=== PATIENT | female | born 1975 | race Caucasian/White ===

== ENCOUNTER 2017-09-26 11:19 | Emergency (ER) | payer MEDICAID ==
[~2017-09-26] VITALS: Ht 165.1 cm; Wt 95.3 kg
[~2017-09-26 11:19] MED LIST: ALBUTEROL2 PUFFS/17 IN; AMOXIL500 MG PO; AMOXIL875 MG PO; APAP/BUTALBITAL1 TA1 PO; BENADRYL25 M1 PO; CIPRO 500MG TA500 MG PO; CIPRODEX 0.3%-7.5 ML OT; DARVOCET-N 1001 EACH PO; FLEXERIL10 MG PO; HYDROCODONE1 TABLET PO; IBU-8800 MG PO; IBUPROFEN800 MG PO; KEFLEX 500MG.500 MG PO; LORTAB 5/500 501 TAB PO; NOMEDS; NOMEDS *; PHENERGAN 25MG.25 M1 PO; PRAVASTATIN 40M40 MG PO; PREDNISONE20 MG PO; PYRIDIUM 200MG200 MG PO; SKELAXIN800 MG PO; SULFACETAMI15 ML/BO1 OP; Tramadol HCl50 MG PO; VIBRAMYCIN 100100 MG PO; VICODIN 5/500 T1 TAB PO; VOLTAREN75 MG PO; ZANTAC 300300 MG PO
--- OUTSIDE RECORDS SUMMARY | 2017-09-26 11:24 | External Medical Summary Rpt | CCD ---
Author Author , LEONIDAS Organization LEONIDAS Address Unknown Phone [email or web address] Purpose Continuity of Care Document - 08-13-2013 through 2016 Results Labs Lab Lab Date Result Refere Interp Status Commen Order Detail nces retati t Range on Treponema pallidum IgG Ab [Presence] in Serum by Immunoassay (08-13-2013 13:15) Trepone NON-QI complet ma 013 CTIVE ed pallidu 13:15 m IgG Ab [Presen ce] in Serum by Immunoa ssay Treponema pallidum IgG Ab [Presence] in Serum by Immunoassay (08-13-2013 13:15) COLLECT JF complet OR 013 ed 13:15 ETHNICI C complet TY 013 ed 13:15 PURPOSE ROUTINE complet OF 013 ed EXAM 13:15 SPECIME BLOOD complet N 013 ed SOURCE 13:15 CHART [id number] complet NUMBER 013 ed 13:15 Trepone Pending complet ma 013 ed pallidu 13:15 m IgG Ab [Presen ce] in Serum by Immunoa ssay
--- OUTSIDE RECORDS SUMMARY | 2017-09-26 11:24 | External Medical Summary Rpt | CCD ---
Author Author , LEONIDAS Organization LEONIDAS Address Unknown Phone [email or web address] Purpose Continuity of Care Document - 08-13-2013 [...] complet N 013 ed SOURCE 13:15 CHART [id number] complet NUMBER 013 ed 13:15 Trepone Pending complet ma 013 ed pallidu 13:15 m IgG Ab [Presen ce] in Serum by Immunoa ssay
--- OUTSIDE RECORDS SUMMARY | 2017-09-26 11:24 | External Medical Summary Rpt | CCD ---
Author Author Conduent Organization Conduent Address Unknown Phone Unavailable Purpose Continuity of Care Document - through 2016
--- OUTSIDE RECORDS SUMMARY | 2017-09-26 11:24 | External Medical Summary Rpt | CCD ---
Demographics Preferred Language Bhutanese Marital Status Unknown Sikhism Affiliation Unknown Race Unknown Ethnic Group Unknown Author Author , LEONIDAS LAUREN Address Unknown Phone Immunization No patient found.
--- OUTSIDE RECORDS SUMMARY | 2017-09-26 11:24 | External Medical Summary Rpt | CCD ---
Demographics Preferred Language Hungarian Marital Status Unknown Mormonism Affiliation Unknown Race Unknown Ethnic Group Unknown Author Author , LEONIDAS LAUREN Address Unknown Phone Immunization No patient found.
--- OUTSIDE RECORDS SUMMARY | 2017-09-26 11:25 | External Medical Summary Rpt ---
Author Author LEONIDAS Johnson, LEONIDAS Production Organization LEONIDAS Production Address Unknown Phone Unavailable Results Treponema pallidum IgG Ab [Presence] in Serum by Immunoassay Observa Value Referen Units Interpr Notes Date tion ce etation Range COLLECT JF No No No No Sep 25 OR informa informa informa informa 2013 tion in tion in tion in tion in 1:15 PM source source source source data data data data ETHNICI C No No No No Sep 25 TY informa informa informa informa 2013 tion in tion in tion in tion in 1:15 PM source source source source data data data data PURPOSE ROUTINE No No No No Sep 25 OF informa informa informa informa 2013 EXAM tion in tion in tion in tion in 1:15 PM source source source source data data data data SPECIME BLOOD No No No No Sep 25 N informa informa informa informa 2013 SOURCE tion in tion in tion in tion in 1:15 PM source source source source data data data data CHART [id number] No No No No Sep 25 NUMBER informa informa informa informa 2013 tion in tion in tion in tion in 1:15 PM source source source source data data data data Trepone NON-QI No No No METHOD Sep [address] informa informa informa OF 2013 pallidu tion in tion in tion in ANALYSI 1:15 PM m IgG source source source S: Ab data data data EIANORM [Presen AL ce] in RANGE: Serum NON-QI by CTIVE\. Immunoa br\This ssay report contain s patient informa tion that must be protect ed in accorda nce with the Health Insuran ce Portabi lity and Account ability Act. Treponema pallidum IgG Ab [Presence] in Serum by Immunoassay Observa Value Referen Units Interpr Notes Date tion ce etation Range COLLECT JF No No No No Sep 25 OR informa informa informa informa 2013 tion in tion in tion in tion in 1:15 PM source source source source data data data data ETHNICI C No No No No Sep 25 TY informa informa informa informa 2013 tion in tion in tion in tion in 1:15 PM source source source source data data data data PURPOSE ROUTINE No No No No Sep 25 OF informa informa informa informa 2013 EXAM tion in tion in tion in tion in 1:15 PM source source source source data data data data SPECIME BLOOD No No No No Sep 25 N informa informa informa informa 2013 SOURCE tion in tion in tion in tion in 1:15 PM source source source source data data data data CHART [id number] No No No No Sep 25 NUMBER informa informa informa informa 2013 tion in tion in tion in tion in 1:15 PM source source source source data data data data Trepone Pending No No No \.br\Aug 13 ma informa informa informa is 2013 pallidu tion in tion in tion in report 1:15 PM m IgG source source source contain Ab data data data s [Presen patient ce] in Serum informa by tion Immunoa that ssay must be protect ed in accorda nce with the Health Insuran ce Concepcion whyte and Account ability Act.
--- OUTSIDE RECORDS SUMMARY | 2017-09-26 11:25 | External Medical Summary Rpt ---
[...] source source data data data data CHART [id number] No No No No Sep 25 NUMBER [...] source source data data data data CHART [id number] No No No No Sep 25 NUMBER [...]
[2017-09-26 11:45] LABS: URINE BILIRUBIN - DIPSTICK NEGATIVE (NEG); URINE BLOOD NEGATIVE (NEG)
[2017-09-26] MEDS ORDERED: MACROBID100 M3 PO (12:00)
[2017-09-26] MEDS ORDERED: PYRIDIUM100 M2 PO (12:00)
--- NOTE | 2017-09-26 12:01 | Urgent Treatment Center Report ---
History of Present Issue Date/Time Seen by Provider 09/26/17 1149 Visit Reason Pt arrived:Walked Presenting Problem:C/O LEFT LOWER BACK PAIN, LOWER ABD PAIN AND URINE RETENTION Location if Accident: Onset of symptoms date/time:/ or onset unknown for:MEDICAL HX UNKNOWN Have you (or family members/close friends) recently traveled outside the [place]? N If Yes, where/when: Have you had exposure to infectious disease within the past month? TB? Other? Specify: Patient state that she noticed yesterday that she was having to urinate frequently but only going small amounts and she was sure if she was having urinary retention or where she was having to go so often only urinating small amounts. State that today she woke up and having lower back pain and pain in her lower abdominal area/groin area State that she is constantly having the feeling of needing to urinate but still when she goes only able to urinate small amounts thinks she may have a UTI ALLERGIES Coded Allergies: codeine (Intermediate, I-HIVES 01/11/17) hydrocodone (09/26/17) Home Medications Active Scripts Ibuprofen (Ibuprofen 800MG) 800 MG PO QIDP PRN pain #30 TAB Prov: 07/23/17 Reported Medications No Home Medications (NO HOME MEDICATIONS) History Medical History General CAD? No Angina: No KS: No Hypertension? No Hyperlipidemia? No CHF? No DVT? No PE? No COPD? No Asthma? No Anemia? No GERD? No Gastric ulcers? No GI Bleed? No Hernia? No Thyroid Problems? No Hypothyroidism? No CVA? No Seizures? No Diabetes? No Renal Insuffiency? No UTI? No Stones? No BPH? No GB Disease: No Nephritic Syndrome? No Asplenia? No Hepatitis? No Sickle Cell Disease? No Arthritis? No Migraines? No Cataracts? No Glaucoma? No MRSA? No HIV? No TB? No Anxiety? No Depression? No Cancer? No More? No Immunization HX DT/Tetanus 1-4 YRS Surgical Hx Previous Surgery?Y Tubal Ligation X 1 TEETH EXTRACTION Family History Family HX Diabetes No CAD No Hypertension No Hyperlipidemia No Cancer No TB No Social History Smoking Hx Smoker: Current Every Day Smoker Tobacco: Yes Type Cigarettes Packs/day < 1 Pack Alcohol Alcohol: No Review of Systems All Other Systems Reviewed and Negative Genitourinary dysuria, frequency, hesitancy, pain. Physical Exam Vital Signs Vital Signs Date Time Temp Pulse Resp B/P Pulse O2 O2 Flow FiO2 Ox Delivery Rate 09/26 1126 98.0 88 20 145/90 98 General Appearance normal appearance, WD/WN, no apparent distress Respiratory Status Yes: trachea midline, chest symmetrical, non tender chest. No: respiratory distress. Lung Sounds bilateral: normal breath sounds, lungs clear. Cardiovascular normal exam, regular rate/rhythm Gastrointestinal normal bowel sounds, normal exam, non tender, soft, no guarding , no rebound Back normal inspection, no CVA tenderness, no vertebral tenderness, bowel/ bladder continent, gait normal Neurologic alert, normal exam, oriented x 3 Medical Decision Making LABS/Meds/Orders Pt receiving controlled substance in ED? No Results/Orders Laboratory Tests 09/26/17 1144: Urine Color YELLOW, Urine Appearance Clear, Urine pH 5.5, Ur Specific [place] 1.020, Urine Protein NEGATIVE, Urine Ketones NEGATIVE, Urine Blood NEGATIVE, Urine Nitrate NEGATIVE, Urine Bilirubin NEGATIVE, Urine Urobilinogen 0.2, Ur Leukocyte Esterase TRACE H, Urine Glucose NEGATIVE Orders Procedure Date/time Status [facility] URINE DIPSTICK 09/26 1144 Complete Departure Departure Time of Disposition 1157 Disposition DC Home or Self Care(routine) Clinical Impression Primary Impression: UTI (urinary tract infection) Qualifiers: Urinary tract infection type: site unspecified Hematuria presence: without hematuria Qualified Code: N39.0 - Urinary tract infection, site not specified Condition STABLE Patient Instructions DI for Urinary Tract Infection (UTI), Nitrofurantoin, Urinary Tract Infection Additional Instructions *Increase fluids. Water not Soda or Tea *Start antibiotic immediately and be sure to take as ordered for the FULL length of time although you should start to see improvement over the next 48 hours *Pyridium as needed Remember this medication will turn your urine [place]. This is normal but it will stain what ever it gets on *You should not use Pyridium for more than 48 hours. If so , follow up with your primary physician to review urine culture and ensure that antibiotic is adequate for infection *Be SURE to follow up anytime for new or worsening symptoms. AND in 48 hours for urine culture results AND in 10-14 days to repeat UA to ensure infection is resolved and blood no longer present *Be sure to let your PCP know that we sent urine cultures from the [facility] so they can follow up to ensure that you area the on the correct antibiotic Discharge Counseling Counseled pt/family regarding diagnosis, test results, medications/RX, home care, follow up needs Prescriptions Current Visit Scripts NITROFURANTOIN MONOHYD/M-CRYST (Macrobid 100 MG Capsule) 100 MG PO BID #14 CAP Phenazopyridine HCl (Pyridium) 100 MG PO TID #6 TAB at 1201
[2017-09-26 12:02] VITALS: BP 140/88
== END 2017-09-26 12:06 | disposition home or self-care (01) ==
LOC: UTC 11:19
PROVIDERS: Nurse Practitioner
DX: N39.0 Urinary tract infection, site not specified (principal); F17.210 Nicotine dependence, cigarettes, uncomplicated

== ENCOUNTER 2017-10-12 16:12 | Emergency (ER) | payer MEDICAID ==
[~2017-10-12] VITALS: Ht 165.1 cm; Wt 95.3 kg
[~2017-10-12 16:12] MED LIST changes: +MACROBID100 M3 PO; +PYRIDIUM100 M2 PO
--- OUTSIDE RECORDS SUMMARY | 2017-10-12 16:18 | External Medical Summary Rpt | CCD ---
Author Author , LEONIDAS Organization LEONIDAS Address Unknown Phone [email or web address] Care Team Providers Care Emergency Management Consultant Name Role Phone A Shakeel CENTENO MD [facility], A Unavailable Unavailable Shakeel CENTENO MD PSC Sam ALVARADO JR, V, Unavailable Unavailable Sam ALVARADO JR, V [facility]available [facility], Unavailable Unavailable [facility], Unavailable Unavailable [facility] Unavailable Unavailable ADE, [facility], Unavailable Unavailable [facility] Unavailable Unavailable INC, [facility] Unavailable Unavailable H[facility]PITAL P, [facility], Unavailable Unavailable [facility], Unavailable Unavailable [facility], [facility], Unavailable Unavailable [facility] Unavailable Unavailable SERVICES, [facility], Unavailable Unavailable [id number], Unavailable Unavailable [id number], Unavailable Unavailable [facility] Purpose Continuity of Care Document - 03-05-2008 through 2016 Problems Code Diagnosis DOS Provider Status [id number] PAIN IN 07-23-2017 [facility] [id number] PAIN IN 01-11-2017 [facility] P R079 CHEST PAIN 01-11-2017 [facility] Z720 TOBACCO USE 01-11-2017 [facility] P J029 ACUTE 10-31-2016 [facility] UNSPECIFIED R4182 ALTERED 10-31-2016 [facility] UNSPECIFIED N390 URINARY 08-24-2016 [facility] TRACT PHYSICIAN INFECTION GROUP SITE NOT SPECIFIED J3489 OTHER 07-25-2016 [facility] SPECIFIED PHYSICIAN DISORDERS GROUP NOSE AND NASAL SINUSES R51 HEADACHE 07-25-2016 [facility] [id number] HORDEOLUM 07-07-2016 [facility] RIGHT LOWER INC EYELID H0012 CHALAZION 07-07-2016 [facility], EYELID PLLC 7823 EDEMA 06-30-2013 Isis CENTENO MD [facility] 13417 OVERWEIGHT 10-26-2012 [facility] 3569 UNSPEC 10-26-2012 [facility] HEREDIT&IDI DON OPATHIC PERIPHERAL NEUROPATHY 3829 UNSPECIFIED 09-01-2011 [facility] OTITIS DON MEDIA 4618 OTHER ACUTE 09-01-2011 [facility] SINUSITIS DON 4660 ACUTE 09-01-2011 [facility] BRONCHITIS [facility] 77332 SPRAIN AND 08-03-2011 [facility] STRAIN OF [facility] UNSPECIFIED INC SITE OF HAND 30951 SPRAIN AND 08-03-2011 [facility] UNSPECIFIED SERVICES SITE OF FOOT 9594 INJURY 08-03-2011 [place] OTHER AND MEDICAL UNSPECIFIED IMAGING ASS HAND EXCEPT FINGER 462 ACUTE 05-28-2011 [facility] 2724 OTHER AND 03-27-2011 [facility] UNSPECIFIED DON HYPERLIPIDE ROHAN 7831 ABNORMAL 03-22-2011 [facility] V180 FAMILY 03-22-2011 [facility] DIABETES INC MELLITUS 7242 LUMBAGO 02-23-2011 [facility] 7245 UNSPECIFIED 02-23-2011 [facility] BACKACHE EMERGENCY SERVICES E9278 OTH 02-23-2011 [facility] OVEREXERT&S EMERGENCY TRENUOUS&RE SERVICES PETITIVE MVMNTS/LOAD S 33033 DENTAL 09-29-2010 [facility] EXTENDING INTO PULP 5253 RETAINED 09-29-2010 [facility] DENT[facility] RO[facility] 57518 OTHER 07-11-2010 [facility] SPECIFIED DON DISORDERS OF URINARY TRACT 7881 DYSURIA 07-11-2010 [facility] 35114 UNSPECIFIED 07-04-2010 [facility] SITE OF EMERGENCY ANKLE SERVICES SPRAIN AND STRAIN 9597 INJURY 07-04-2010 [place] OTHER&UNSPE MEDICAL CIFIED KNEE IMAGING ASS LEG ANKLE&FOOT 50568 PAIN IN 04-20-2010 [place] [facility]INT, MEDICAL ANKLE AND IMAGING FOOT ASSOCIATES 45882 SWELLING OF 04-20-2010 [facility] V7231 ROUTINE 02-03-2010 [facility] [place] AL EXAMINATION 463 ACUTE 08-03-2008 [facility] 6260 ABSENCE OF 08-03-2008 ALVARADO MENSTRUATIO , J V N 46013 OPEN WOUND 04-21-2008 [facility] MENTION PROF JANET COMPLICATIO N E8498 OTHER 04-21-[address] [place] [address] OF IM[facility]ING OCCURRENCE ASSOCIATES E8859 FALL FROM 04-21-2008 [place] OTHER MEDICAL SLIPPING IMAGING TRIPPING OR ASSOCIATES STUMBLING V065 NEED 04-21-2008 [facility] VACCINATION PROF SERV W/TETANUS-D [facility] 7099 UNSPECIFIED 03-16-2008 [facility] DISORDER Sam HENDRICK[facility] V OF SKIN&SUBCUT ANEOUS TISSUE 9174 FOOT&TOE 03-06-2008 [facility] INSECT BITE JR J V NONVENOMOUS W/O MENTION INF H00.019 H[facility] EXTERNUM UNSPECIFIED EYE, UNSPECIFIED EYELID J02.9 ACUTE PHARYNGITIS , UNSPECIFIED M79.602 PAIN IN LEFT ARM Medications Na ND Rx Da Fi Fi Am Da Di Ph RX Ph St me C No te ll ll ou ys ag ar # ys at rm s nt no ma ic us Or Da si cy ia de te s n re d DI 00 10 11 20 10 00 EA Ac CL 22 -2 -[address] ti OF 82 1- 7- 00 00 SI ve EN 55 20 20 50 DE AC 19 17 17 62 6 10 PH SO AR D MA EC CY 75 OF CY MG NT HI TA AN B A IN C IB 53 09 10 30 8 00 EA Ac UP 74 -0 -[address] ti RO 60 5- 6- 00 00 SI ve FE 46 20 20 50 DE N 60 17 17 02 80 5 34 PH 0 AR MG MA CY TA BL OF ET CY NT HI AN A IN C CY 00 02 03 6. 3 00 EA Ac CL 37 -2 -[address] ti OB 80 3- 7- 0 00 SI ve EN 75 20 20 47 DE ZA 11 17 17 73 AR 0 43 PH IN AR E MA 10 CY MG OF CY TA NT BL HI ET AN A IN C CE 65 12 01 21 7 00 EA Ac PH 86 -1 -[address] ti AL 20 4- 9- 00 00 SI ve EX 01 20 20 46 DE IN 90 16 17 88 5 25 PH 50 AR 0 MA MG CY CA OF PS CY UL NT E HI AN A IN C LO 45 10 10 0 [address] Ac RA 80 -1 -[address] 50 EP ti TA 20 4- 4 00 SI 29 HE ve DI 65 20 20 DE NS NE 08 11 11 7 PH DO 10 AR N MA R MG CY TA OF BL ET CY NT HI AN A AM 00 10 10 0 [address] Ac OX 78 -1 -[address] 50 EP ti IC 12 4- 4 00 SI 30 HE ve IL 61 20 20 DE NS LI 30 11 11 N 5 PH DO 50 AR N 0 MA R MG CY CA OF PS UL CY E NT HI AN A 00 09 09 0 8. 2 EA 24 GA Ac 59 -1 -[address] 13 IN ti 10 6- 0 SI 16 EY ve 34 20 20 DE 90 11 11 TX 1 PH CH AR AE MA L CY S OF CY NT HI AN A DI 00 09 09 0 20 10 EA 24 GA Ac CL 78 -1 -[address] 13 IN ti OF 11 SI 17 EY ve EN 78 20 20 DE AC 90 11 11 TX 1 PH CH SO AR AE D MA L EC CY S 75 OF MG CY NT TA HI B AN A AR 00 05 05 5 [address] Ac AV 09 -0 -[address] 44 EP ti 37 SI 31 HE ve TA 20 20 20 DE NS TI 29 11 11 N 8 PH DO SO AR N DI MA R UM CY 40 OF MG CY NT TA HI B AN A TR 65 04 04 0 20 5 EA 22 GR Ac AM 16 -0 -[address] 02 AY ti AD 20 7 7 SI 67 ve OL 62 20 20 DE RO 71 11 11 BE HC 1 PH RT L AR B 50 MA CY MG OF TA BL CY ET NT HI AN A IB 53 11 11 0 20 7 EA 20 HE Ac UP 74 -1 -[address] 02 ND ti RO 60 7 7 SI 41 ER ve FE 46 20 20 DE SO N 60 10 10 N 80 5 PH RO 0 AR BE MG MA RT CY W TA BL OF ET CY NT HI AN A AM 00 11 11 0 20 7 EA 20 HE Ac OX 78 -1 -[address] 00 ND ti IC 12 6- 6 00 SI 16 ER ve IL 61 20 20 DE SO LI 30 10 10 N N 5 PH RO 50 AR BE 0 MA RT MG CY W CA OF PS UL CY E NT HI AN A ME 00 11 11 0 21 6 EA 20 HE Ac TH 78 -1 -[address] 00 ND ti YL 15 6- 6- 00 SI 17 ER ve AR 02 20 20 DE SO ED 20 10 10 N NI 7 PH RO SO AR BE LO MA RT NE CY W 4 OF MG CY DO NT SE HI PK AN A 00 11 11 0 20 4 EA 20 HE Ac 05 -1 -[address] 00 ND ti 44 6- 6- 00 SI 18 ER ve 65 20 20 DE SO 02 10 10 N 9 PH RO AR BE MA RT CY W OF CY NT HI AN A 00 11 11 0 20 4 EA 20 HE Ac 05 -1 -[address] 00 ND ti 44 6- 6- 00 SI 18 ER ve 65 20 20 DE SO 02 10 10 N 9 PH RO AR BE MA RT CY W OF CY NT HI AN A 00 11 11 0 15 3 EA 19 HE Ac 59 -1 -[address] 94 ND ti 10 1- SI 15 ER ve 38 20 20 DE SO 50 10 10 N 1 PH RO AR BE MA RT CY W OF CY NT HI AN A 00 11 11 0 15 3 EA 19 HE Ac 59 -1 -[address] 94 ND ti 10 1- SI 15 ER ve 38 20 20 DE SO 50 10 10 N 1 PH RO AR BE MA RT CY W OF CY NT HI AN A PE 00 11 11 [address] Ac RM 47 -0 -[address] 85 EP ti ET 25 5- 5- 00 SI 74 HE ve HR 24 20 20 DE NS IN 26 10 10 7 PH DO 1% AR N MA R LO CY TI ON OF CY NT HI AN A FU 00 08 08 1 [address] Ac RO 37 -2 -[address] 81 EP ti SE 80 3- 3- 00 SI 40 HE ve TX 21 20 20 DE NS DE 61 10 10 0 PH DO 40 AR N MA R MG CY TA OF BL ET CY NT HI AN A [place] 00 08 08 0 [address] 16 -2 -[address] 81 EP ti AT 80 3- 3- 00 SI 41 HE ve IN 00 20 20 DE NS 73 10 10 10 0 PH DO 0, AR N 00 MA R 0 CY UN IT OF S/ GM CY NT OI HI NT AN A BREWER 53 08 08 0 [address] Ac LF 74 -2 -[address] 81 EP ti AM 60 3- 3- 00 SI 42 HE ve ET 27 20 20 DE NS HO 20 10 10 XA 5 PH DO ZO AR N LE MA R -T CY MP OF DS CY TA NT BL HI ET AN A 00 08 08 0 4. 1 EA 18 WE Ac 59 -1 -[address] 72 HR ti 10 6- 6- 0 SI 60 MA ve 34 20 20 DE N 90 10 10 II 1 PH I AR WI MA LL CY IA M OF E CY NT HI AN A 00 06 06 0 12 3 CL 21 SO Ac 09 -0 -0 .0 IN 73 KA ti 30 2- 2- 00 IC 94 N ve 49 20 20 BA 00 10 10 PH BA 5 AR TU MA ND CY E O LL C IB 53 06 06 0 15 5 CL 21 SO Ac UP 74 -0 -0 .0 IN 73 KA ti RO 60 2- 2- 00 IC 95 N ve FE 46 20 20 BA N 60 10 10 PH BA 80 5 AR TU 0 MA ND MG CY E O TA LL BL C ET 00 05 05 0 20 3 EA 17 HE Ac 05 -2 -[address] 76 ND ti 44 7- 7 00 SI 40 ER ve 65 20 20 DE SO 02 10 10 N 9 PH RO AR BE MA RT CY W OF CY NT HI AN A 00 05 05 0 20 3 EA 17 HE Ac 05 -2 -[address] 76 ND ti 44 7- 7- 00 SI 40 ER ve 65 20 20 DE SO 02 10 10 N 9 PH RO AR BE MA RT CY W OF CY NT HI AN A ME 00 05 05 0 21 6 EA 17 HE Ac TH 78 -2 -[address] 68 ND ti YL 15 SI 55 ER ve AR 02 20 20 DE SO ED 20 10 10 N NI 7 PH RO SO AR BE LO MA RT NE CY W 4 OF MG CY DO NT SE HI PK AN A AR 00 05 05 0 12 2 EA 17 HE Ac OM 78 -2 -[address] 68 ND ti ET 11 1 SI 56 ER ve MARX 83 20 20 DE SO ZI 01 10 10 N NE 0 PH RO AR BE 25 MA RT CY W MG OF TA BL CY ET NT HI AN A AM 00 05 05 0 15 5 EA 17 HE Ac OX 78 -2 -[address] 68 ND ti IC 12 1 SI 57 ER ve IL 61 20 20 DE SO LI 30 10 10 N N 5 PH RO 50 AR BE 0 MA RT MG CY W CA OF PS UL CY E NT HI AN A 00 05 05 0 20 4 EA 17 HE Ac 05 -2 -[address] 68 ND ti 44 1- 1- 00 SI 58 ER ve 65 20 20 DE SO 02 10 10 N 9 PH RO AR BE MA RT CY W OF CY NT HI AN A 00 05 05 0 20 4 EA 17 HE Ac 05 -2 -[address] 68 ND ti 44 1- 1- 00 SI 58 ER ve 65 20 20 DE SO 02 10 10 N 9 PH RO AR BE MA RT CY W OF CY NT HI AN A 00 05 05 0 15 3 EA 17 HE Ac 59 -1 -[address] 64 ND ti 10 8- 8- 00 SI 34 ER ve 38 20 20 DE SO 50 10 10 N 1 PH RO AR BE MA RT CY W OF CY NT HI AN A 00 05 05 0 15 3 EA 17 HE Ac 59 -1 -[address] 64 ND ti 10 8- 8- 00 SI 34 ER ve 38 20 20 DE SO 50 10 10 N 1 PH RO AR BE MA RT CY W OF CY NT HI AN A AC 00 05 05 0 [address] Ac ET 40 -1 -[address] 55 EP ti AM 60 0- 0- 00 SI 13 HE ve IN 48 20 20 DE NS OP 41 10 10 HE 0 PH KE N- AR CO MA N D CY C #3 OF TA BL CY ET NT HI AN A AM 00 12 12 [address] Ac OX 09 -0 -1 .0 TE 16 EP ti IC 33 9- 8- 00 83 HE ve IL 10 20 20 AI NS LI 90 08 08 D N 5 PH KE 50 AR 0 M N MG #3 C 93 CA 8 PS UL E AC 00 12 12 [address] Ac ET 09 -0 -1 .0 TE 16 EP ti AM 30 9- 8- 00 82 HE ve IN 15 20 20 AI NS OP 01 08 08 D HE 0 PH KE N- AR CO M N D #3 C #3 93 8 TA BL ET 60 10 11 00 90 2 CL 18 No Ac 25 -2 -0 .0 IN 01 t ti 80 1- 7- 00 IC 88 Av ve 23 20 20 ai 91 08 08 PH la 6 AR bl MA e CY 63 09 09 00 20 10 CL 17 No Ac 30 -1 -2 .0 IN 80 t ti 40 5- 6- 00 IC 30 Av ve 65 20 20 ai 70 08 08 PH la 5 AR bl MA e CY 00 06 07 00 10 2 RI 73 GO Ac 40 -0 -0 .0 TE 64 BL ti 60 7- 3- 00 59 E ve 35 20 20 AI RO 70 08 08 D ND 5 PH AL AR E M #3 93 8 00 04 05 00 15 8 CL 16 No Ac 55 -2 -0 .0 IN 91 t ti 50 1- 8- 00 IC 68 Av ve 01 20 20 ai 00 08 08 PH la 2 AR bl MA e CY ME 59 04 04 00 21 6 CL 16 No Ac TH 74 -1 -2 .0 IN 90 t ti YL 60 8- 4- 00 IC 66 Av ve AR 00 20 20 ai ED 10 08 08 PH la NI 3 AR bl SO MA e LO CY NE 4 MG DO SE PK CY 00 03 04 00 30 15 CL 16 No Ac CL 37 -1 -1 .0 IN 70 t ti OB 80 7- 7- 00 IC 90 Av ve EN 75 20 20 ai ZA 11 08 08 PH la AR 0 AR bl IN MA e E CY 10 MG TA BL ET Results Labs Lab Lab Date Result Refere Interp Status Commen Order Detail nces retati t Range on Urinalysis by dipstick (09-26-2017 11:44) Urine NEGATIV NEG complet total 017 E ed bilirub 11:44 NEGATIV in E L detecti on by test Urine NEGATIV NEG complet blood 017 E ed detecti 11:44 NEGATIV on E L Urine YELLOW YELLOW complet color 017 YELLOW ed 11:44 L Glucose = NEG complet ur 017 NEGATIV ed test 11:44 E strip Urine NEGATIV NEG complet ketones 017 E ed 11:44 NEGATIV detecti E L on by mg/dL automat ed willi Urine = 5.5 5.0-8.5 complet pH 017 ed 11:44 Urine = NEG complet protein 017 NEGATIV ed 11:44 E mg/dL measure ment by automat ed t Urine = 1.020 1.005-1 complet specifi 017 .030 ed c 11:44 gravity measure ment Urine TRACE NEG complet leukocy 017 TRACE L ed te 11:44 esteras e detecti on by au Urine NEGATIV NEG complet nitrite 017 E ed 11:44 NEGATIV detecti E L on by test strip Urine 0.2 0.2 NEG complet urobili 017 L ed nogen 11:44 E.U./dL detecti on by test str Urine Clear CLEAR complet appeara 017 Clear L ed nce 11:44 determi nation Encounters Encounter Start End Date Code Location Performer Type Date [facility] - 7 7 [facility] - 6 6 [facility] 6 6 [facility] - 1 1 [facility] - 1 1 [facility] - 1 1 [facility] - 1 1 [facility] - 0 0 [facility] - 0 0 [facility] - 8 8 [facility] - 8 8 [facility]
--- OUTSIDE RECORDS SUMMARY | 2017-10-12 16:18 | External Medical Summary Rpt | CCD ---
Author Author , LEONIDAS Organization LEONIDAS Address Unknown Phone [email or web address] Care Team Providers Care City Recorder Name Role Phone A Shakeel CENTENO MD PSC, A Unavailable Unavailable Shakeel CENTENO MD PSC Sam ALVARADO JR, V, Unavailable Unavailable Sam ALVARADO JR, V [facility], Unavailable Unavailable [facility] Un[facility]available [facility] XOCHILT WYMAN, Unavailable Unavailable XOCHILT WYMAN [facility] Unavailable Unavailable ADE, [facility], Unavailable Unavailable [facility] Unavailable Unavailable INC, [facility] Unavailable Unavailable HOSPITAL P, [facility] HAYDEN YOUSIF, Unavailable Unavailable HAYDEN DODD [facility], Unavailable Unavailable [facility] Unavailable Unavailable IM[facility]ING [facility], [facility], Unavailable Unavailable [facility] Unavailable Unavailable SERVICES[facility], Unavailable Unavailable FAUSTINA, [id number], Unavailable Unavailable [id number], Unavailable Unavailable [facility] DON Purpose Continuity of Care Document - 03-05-2008 through 2016 Problems Code Diagnosis DOS Provider Status [id number] PAIN IN 07-23-2017 [facility] [id number] PAIN IN 01-11-2017 [facility] P R079 CHEST PAIN 01-11-2017 [facility] UNSPECIFIED [facility]ING [facility] Z720 TOBACCO USE 01-11-2017 [facility] P J029 ACUTE 10-31-2016 [facility] UNSPECIFIED R4182 ALTERED 10-31-2016 [facility] UNSPECIFIED N390 URINARY 08-24-2016 [facility] TRACT PHYSICIAN INFECTION GROUP SITE NOT SPECIFIED J3489 OTHER 07-25-2016 [facility] SPECIFIED PHYSICIAN DISORDERS GROUP NOSE AND NASAL SINUSES R51 HEADACHE 07-25-2016 [facility] [id number] HORDEOLUM 07-07-2016 [facility] RIGHT LOWER INC EYELID H0012 CHALAZION 07-07-2016 [facility], EYELID PLLC 7823 EDEMA 06-30-2013 Isis CENTENO MD [facility] 96111 OVERWEIGHT 10-26-2012 [facility] 3569 UNSPEC 10-26-2012 [facility] HEREDIT&IDI DON OPATHIC PERIPHERAL NEUROPATHY 3829 UNSPECIFIED 09-01-2011 [facility] OTITIS DON MEDIA 4618 OTHER ACUTE 09-01-2011 [facility] SINUSITIS DON 4660 ACUTE 09-01-2011 [facility] BRONCHITIS DON 05700 SPRAIN AND 08-03-2011 [facility] UNSPECIFIED INC SITE OF HAND 33101 SPRAIN AND 08-03-2011 [facility] UNSPECIFIED SERVICES SITE OF FOOT 9594 INJURY 08-03-2011 [facility] OTHER AND MEDICAL UNSPECIFIED IMAGING ASS HAND EXCEPT FINGER 462 ACUTE 05-28-2011 [facility] 2724 OTHER AND 03-27-2011 [facility] UNSPECIFIED DON HYPERLIPIDE ROHAN 7831 ABNORMAL 03-22-2011 [facility] V180 FAMILY 03-22-2011 [facility] DIABETES INC MELLITUS 7242 LUMBAGO 02-23-2011 [facility] INC 7245 UNSPECIFIED 02-23-2011 [facility] E9278 OTH 02-23-2011 [facility] OVEREXERT&S EMERGENCY TRENUOUS&RE SERVICES PETITIVE MVMNTS/LOAD S 84738 DENTAL 09-29-2010 [facility] CARIES [facility] EXTENDING INTO PULP 5253 RETAINED 09-29-2010 [facility] DENT[facility] ROOT [facility] 14225 OTHER 07-11-2010 [facility] SPECIFIED DON DISORDERS OF URINARY TRACT 7881 DYSURIA 07-11-2010 [facility] DON 89540 UNSPECIFIED 07-04-2010 [facility] ANKLE SERVICES SPRAIN AND STRAIN 9597 INJURY 07-04-2010 [facility] OTHER&UNSPE MEDICAL CIFIED KNEE IMAGING ASS LEG ANKLE&FOOT 26791 PAIN IN 04-20-2010 [facility] JOINT, MEDICAL ANKLE AND IMAGING FOOT ASSOCIATES 27182 SWELLING OF 04-20-2010 [facility] V7231 ROUTINE 02-03-2010 [facility] [place] [facility] AL EXAMINATION 463 ACUTE 08-03-2008 [facility] 6260 ABSENCE OF 08-03-2008 ALVARADO MENSTRUATIO , J V N 50324 OPEN WOUND 04-21-2008 [facility] MENTION PROF JANET COMPLICATIO N E8498 OTHER 04-21-[address] [place] [address] OF IM[facility]ING OCCURRENCE ASSOCIATES E8859 FALL FROM 04-21-2008 [facility] OTHER MEDICAL SLIPPING IMAGING TRIPPING OR ASSOCIATES STUMBLING V065 NEED 04-21-2008 [facility] VACCINATION PROF SERV W/TETANUS-D [facility] 7099 UNSPECIFIED 03-16-2008 AL[facility] DISORDER Sam [...] 47 DE ZA 11 17 17 73 DE 0 43 PH IN AR E MA [...] 34 20 20 DE 90 11 11 CO 1 PH CH AR AE MA L CY S OF CY NT HI AN A DI 00 09 09 0 20 10 EA 24 GA Ac CL 78 -1 -[address] 13 IN ti OF 11 SI 17 EY ve EN 78 20 20 DE AC 90 11 11 CO 1 PH CH SO AR AE D MA L EC CY S 75 OF MG CY NT TA HI B AN A DE 00 05 05 5 30 30 EA [...] 6- 6- 00 SI 17 ER ve DE 02 20 20 DE SO ED 20 [...] 3- 3- 00 SI 40 HE ve CO 21 20 20 DE NS DE 61 [...] ti YL 15 SI 55 ER ve DE 02 20 20 DE SO ED 20 10 10 N NI 7 PH RO SO AR BE LO MA RT NE CY W 4 OF MG CY DO NT SE HI PK AN A DE 00 05 05 0 12 2 EA [...] 8- 4- 00 IC 66 Av ve DE 00 20 20 ai ED 10 08 [...] ai ZA 11 08 08 PH la DE 0 AR bl IN MA e E [...] End Date Code Location Performer Type Date [facility] 8 [facility]
--- OUTSIDE RECORDS SUMMARY | 2017-10-12 16:20 | External Medical Summary Rpt | CCD ---
Author Author , LEONIDAS Organization LEONIDAS Address Unknown Phone [email or web address] Care Team Providers Care Table Worker Packager Name Role Phone A Shakeel CENTENO MD PSC, A Unavailable Unavailable Shakeel CENTENO MD PSC Sam ALVARADO JR, V, Unavailable Unavailable Sam ALVARADO JR, V [facility], Un[facility] Unavailable [facility], Un[facility]OCHILT WYMAN, Unavailable Unavailable [facility]CHILT W[facility]MAN [facility] Unavailable Unavailable ADE, [facility], Unavailable Unavailable [facility] Unavailable Unavailable INC, [facility] Unavailable Unavailable HOSPITAL P, [facility] HAYDEN DODD, Unavailable Unavailable HAYDEN DODD [facility], Unavailable Unavailable [facility] Unavailable Unavailable IM[facility]ING [facility], [facility], Unavailable Unavailable [facility] Unavailable Unavailable SERVICES[facility], Unavailable Unavailable FAUSTINA, [id number], Unavailable Unavailable [id number], Unavailable Unavailable [facility] Purpose Continuity of Care Document - 03-05-2008 through 2016 Problems Code Diagnosis DOS Provider Status [id number] PAIN IN 07-23-2017 [facility] [id number] PAIN IN 01-11-2017 [facility] P R079 CHEST PAIN 01-11-2017 [facility] UNSPECIFIED MEDICAL IMAGING ASS Z720 TOBACCO USE 01-11-2017 [facility] P J029 ACUTE 10-31-2016 [facility] UNSPECIFIED R4182 ALTERED 10-31-2016 [facility] UNSPECIFIED N390 URINARY 08-24-2016 [facility] TRACT PHYSICIAN INFECTION GROUP SITE NOT SPECIFIED J3489 OTHER 07-25-2016 [facility] SPECIFIED PHYSICIAN DISORDERS GROUP NOSE AND NASAL SINUSES R51 HEADACHE 07-25-2016 [facility] [id number] HORDEOLUM 07-07-2016 [facility] RIGHT LOWER INC EYELID H0012 CHALAZION 07-07-2016 [facility], EYELID PLLC 7823 EDEMA 06-30-2013 Isis CENTENO MD [facility] 60702 OVERWEIGHT 10-26-2012 [facility] 3569 UNSPEC 10-26-2012 [facility] HEREDIT&IDI DON OPATHIC PERIPHERAL NEUROPATHY 3829 UNSPECIFIED 09-01-2011 [facility] OTITIS DON MEDIA 4618 OTHER ACUTE 09-01-2011 [facility] SINUSITIS DON 4660 ACUTE 09-01-2011 [facility] BRONCHITIS DON 33560 SPRAIN AND 08-03-2011 [facility] UNSPECIFIED INC SITE OF HAND 27116 SPRAIN AND 08-03-2011 [facility] UNSPECIFIED SERVICES SITE OF FOOT 9594 INJURY 08-03-2011 [place] OTHER AND MEDICAL UNSPECIFIED IMAGING ASS HAND EXCEPT FINGER 462 ACUTE 05-28-2011 [facility] 2724 OTHER AND 03-27-2011 [facility] UNSPECIFIED DON HYPERLIPIDE ROHAN 7831 ABNORMAL 03-22-2011 [facility] V180 FAMILY 03-22-2011 [facility] DIABETES INC MELLITUS 7242 LUMBAGO 02-23-2011 [facility] 7245 UNSPECIFIED 02-23-2011 [facility] E9278 OTH 02-23-2011 [facility] OVEREXERT&S EMERGENCY TRENUOUS&RE SERVICES PETITIVE MVMNTS/LOAD S 34100 DENTAL 09-29-2010 [facility] CARIES YOUSIF EXTENDING INTO PULP 5253 RETAINED 09-29-2010 [facility] DENTAL ROOT YOUSIF 61629 OTHER 07-11-2010 [facility] SPECIFIED DON DISORDERS OF URINARY TRACT 7881 DYSURIA 07-11-2010 [facility] DON 93948 UNSPECIFIED 07-04-2010 [facility] SITE OF EMERGENCY ANKLE SERVICES SPRAIN AND STRAIN 9597 INJURY 07-04-2010 [place] OTHER&UNSPE MEDICAL CIFIED KNEE IMAGING ASS LEG ANKLE&FOOT 03944 PAIN IN 04-20-2010 [place] JOINT, MEDICAL ANKLE AND IMAGING FOOT ASSOCIATES 12199 SWELLING OF 04-20-2010 [facility] V7231 ROUTINE 02-03-2010 [facility] AL EXAMINATION 463 ACUTE 08-03-2008 [facility] 6260 ABSENCE OF 08-03-2008 JENNY MENSTRUATIO JR, J V N 48565 OPEN WOUND 04-21-2008 [facility] WITHOUT [facility] MENTION PROF SERV COMPLICATIO N E8498 OTHER 04-21-[address] [facility] IM[facility]ING OCCURRENCE ASSOCIATES E8859 FALL FROM 04-21-2008 [facility] OTHER MEDICAL SLIPPING IMAGING TRIPPING OR ASSOCIATES STUMBLING V065 NEED 04-21-2008 [facility] PROF SERV W/TETANUS-D [facility] 7099 UNSPECIFIED 03-16-2008 ALVAR[facility]O DISORDER JR, J V OF SKIN&SUBCUT ANEOUS TISSUE 9174 FOOT&TOE 03-06-2008 AL[facility] INSECT BITE JR, J V NONVENOMOUS W/O MENTION INF Medications Na ND Rx Da Fi Fi [...] 47 DE ZA 11 17 17 73 SC 0 43 PH IN AR E MA [...] ST 50 EP ti TA 20 4- 4- 00 SI 29 HE ve DI 65 20 20 DE NS NE 08 11 11 7 PH DO 10 AR N MA R MG CY TA OF BL ET CY NT HI AN A AM 00 10 10 0 [address] Ac OX 78 -1 -[address] 50 EP ti IC 12 4- 4- 00 SI 30 HE ve IL 61 20 20 DE NS LI 30 11 11 N 5 PH DO 50 AR N 0 MA R MG CY CA OF PS UL CY E NT HI AN A 00 09 09 0 8. 2 EA 24 GA Ac 59 -1 -[address] 13 IN ti 10 6- 6- 0 SI 16 EY ve 34 20 20 DE 90 11 11 MD 1 PH CH AR AE MA L CY S OF CY NT HI AN A DI 00 09 09 0 20 10 EA 24 GA Ac CL 78 -1 -[address] 13 IN ti OF 11 6- 6- 00 SI 17 EY ve EN 78 20 20 DE AC 90 11 11 MD 1 PH CH SO AR AE D MA L EC CY S 75 OF MG CY NT TA HI B AN A SC 00 05 05 5 [address] Ac AV 09 -0 -[address] 44 EP ti 37 9- 9- 00 SI 31 HE ve TA 20 20 20 DE NS TI 29 11 11 N 8 PH DO SO AR N DI MA R UM CY 40 OF MG CY NT TA HI B AN A TR 65 04 04 0 20 5 EA 22 GR Ac AM 16 -0 -[address] 02 AY ti AD 20 7- 7- 00 SI 67 ve OL 62 20 20 DE RO 71 11 11 BE HC 1 PH RT L AR B 50 MA CY MG OF TA BL CY ET NT HI AN A IB 53 11 11 0 20 7 EA 20 HE Ac UP 74 -1 -[address] 02 ND ti RO 60 7- 7- 00 SI 41 ER ve FE 46 20 20 DE SO N 60 10 10 N 80 5 PH RO 0 AR BE MG MA RT CY W TA BL OF ET CY NT HI AN A AM 00 11 11 0 20 7 EA 20 HE Ac OX 78 -1 -[address] 00 ND ti IC 12 6- 6- 00 SI 16 ER ve IL 61 [...] 6- 6- 00 SI 17 ER ve SC 02 20 20 DE SO ED 20 [...] .0 ST 94 ND ti 10 1- 1- 00 SI 15 ER ve 38 20 20 DE SO 50 10 10 N 1 PH RO AR BE MA RT CY W OF CY NT HI AN A 00 11 11 0 15 3 EA 19 HE Ac 59 -1 -[address] 94 ND ti 10 1- 1- 00 SI 15 ER ve 38 20 20 [...] 3- 3- 00 SI 40 HE ve MD 21 20 20 DE NS DE 61 [...] -[address] 76 ND ti 44 7 7 00 SI 40 ER ve 65 20 20 DE SO 02 10 10 N 9 PH RO AR BE MA RT CY W OF CY NT HI AN A ME 00 05 05 0 21 6 EA 17 HE Ac TH 78 -2 -[address] 68 ND ti YL 15 SI 55 ER ve SC 02 20 20 DE SO ED 20 10 10 N NI 7 PH RO SO AR BE LO MA RT NE CY W 4 OF MG CY DO NT SE HI PK AN A SC 00 05 05 0 12 2 EA 17 HE Ac OM 78 -2 -[address] 68 ND ti ET 11 SI 56 ER ve MARX 83 20 20 DE SO ZI 01 10 10 N NE 0 PH RO AR BE 25 MA RT CY W MG OF TA BL CY ET NT HI AN A AM 00 05 05 0 15 5 EA 17 HE Ac OX 78 -2 -[address] 68 ND ti IC 12 SI 57 ER ve IL 61 20 20 DE SO LI 30 10 10 N N 5 PH RO 50 AR BE 0 MA RT MG CY W CA OF PS UL CY E NT HI AN A 00 05 05 0 20 4 EA 17 HE Ac 05 -2 -[address] 68 ND ti 44 1- SI 58 ER ve 65 20 20 [...] .0 ST 64 ND ti 10 8- 8 00 SI 34 ER ve 38 20 20 DE SO 50 10 10 N 1 PH RO AR BE MA RT CY W OF CY NT HI AN A 00 05 05 0 15 3 EA 17 HE Ac 59 -1 -[address] 64 ND ti 10 8 8 SI 34 ER ve 38 20 20 [...] 8- 4- 00 IC 66 Av ve SC 00 20 20 ai ED 10 08 [...] ai ZA 11 08 08 PH la SC 0 AR bl IN MA e E CY 10 MG TA BL ET Encounters Encounter Start End Date Code Location Performer Type Date [facility] - 7 7 [facility] - 6 6 [facility] - 6 6 [facility] 1 1 [facility] 1 1 [facility] 1 1 [facility] 1 1 [facility] 0 0 [facility] - 0 0 [facility] - 8 8 [facility] - 8 8 [facility]
--- OUTSIDE RECORDS SUMMARY | 2017-10-12 16:20 | External Medical Summary Rpt | CCD ---
Author Author , LEONIDAS Organization LEONIDAS Address Unknown Phone [email or web address] Care Team Providers Care Process Artist Name Role Phone A Shakeel CENTENO MD PSC, A Unavailable Unavailable Shakeel CENTENO MD PSC Sam ALVARADO JR, V, Unavailable Unavailable Sam ALVARADO JR, V [facility], Un[facility] Unavailable [facility], Un[facility]available [facility] XOCHILT WYMAN, Unavailable Unavailable XOCHILT WYMAN [facility] Unavailable Unavailable ADE, [facility], Unavailable Unavailable [facility] Unavailable Unavailable INC, [facility] Unavailable Unavailable HOSPITAL P, [facility] HAYDEN DODD, Unavailable Unavailable HAYDEN DODD [facility], [facility]available Unavailable [facility] Unavailable Unavailable IMAGING ASS[facility], Unavailable Unavailable [facility] Unavailable Unavailable SERVICES[facility], Unavailable Unavailable FAUSTINA, [id number], Unavailable Unavailable [id number] DON, Unavailable Unavailable [facility] DON Purpose Continuity of Care Document - 03-05-2008 through 2016 Problems Code Diagnosis DOS Provider Status [id number] PAIN IN 07-23-2017 [facility] [id number] PAIN IN 01-11-2017 [facility] ARM [facility] P R079 CHEST PAIN 01-11-2017 [place] UNSPECIFIED MEDICAL IMAGING ASS Z720 TOBACCO USE 01-11-2017 [facility] P J029 ACUTE 10-31-2016 [facility] UNSPECIFIED R4182 ALTERED 10-31-2016 [facility] UNSPECIFIED N390 URINARY 08-24-2016 [facility] TRACT PHYSICIAN INFECTION GROUP SITE NOT SPECIFIED J3489 OTHER 07-25-2016 [facility] SPECIFIED PHYSICIAN DISORDERS GROUP NOSE AND NASAL SINUSES R51 HEADACHE 07-25-2016 [facility] [id number] HORDEOLUM 07-07-2016 [facility] RIGHT LOWER INC EYELID H0012 CHALAZION 07-07-2016 [facility], EYELID PLLC 7823 EDEMA 06-30-2013 Isis CENTENO MD [facility] 53810 OVERWEIGHT 10-26-2012 [facility] 3569 UNSPEC 10-26-2012 [facility] HEREDIT&IDI DON OPATHIC PERIPHERAL NEUROPATHY 3829 UNSPECIFIED 09-01-2011 [facility] OTITIS DON MEDIA 4618 OTHER ACUTE 09-01-2011 [facility] SINUSITIS DON 4660 ACUTE 09-01-2011 [facility] BRONCHIT[facility] DON 59338 SPRAIN AND 08-03-2011 [facility] UNSPECIFIED INC SITE OF HAND 65259 SPRAIN AND 08-03-2011 [facility] UNSPECIFIED SERVICES SITE OF FOOT 9594 INJURY 08-03-2011 [place] OTHER AND MEDICAL UNSPECIFIED IMAGING ASS HAND EXCEPT FINGER 462 ACUTE 05-28-2011 [facility] 2724 OTHER AND 03-27-2011 [facility] UNSPECIFIED DON HYPERLIPIDE ROHAN 7831 ABNORMAL 03-22-2011 [facility] V180 FAMILY 03-22-2011 [facility] DIABETES INC MELLITUS 7242 LUMBAGO 02-23-2011 [facility] 7245 UNSPECIFIED 02-23-2011 [facility] E9278 OTH 02-23-2011 [facility] OVEREXERT&S EMERGENCY TRENUOUS&RE SERVICES PETITIVE MVMNTS/LOAD S 86579 DENTAL 09-29-2010 B[facility] CARIES YOUSIF EXTENDING INTO PULP 5253 RETAINED 09-29-2010 [facility] DENTAL ROOT YOUSIF 88873 OTHER 07-11-2010 [facility] SPECIFIED DON DISORDERS OF URINARY TRACT 7881 DYSURIA 07-11-2010 [facility] 86207 UNSPECIFIED 07-04-2010 [facility] ANKLE SERVICES SPRAIN AND STRAIN 9597 INJURY 07-04-2010 [place] OTHER&UNSPE MEDICAL CIFIED KNEE IMAGING ASS LEG ANKLE&FOOT 91569 PAIN IN 04-20-2010 [place] JOINT, MEDICAL ANKLE AND IMAGING FOOT ASSOCIATES 08625 SWELLING OF 04-20-2010 [facility] V7231 ROUTINE 02-03-2010 [facility] AL EXAMINATION 463 ACUTE 08-03-2008 [facility] 6260 ABSENCE OF 08-03-2008 JENNY MENSTRUATIO JR, J V N 48751 OPEN WOUND 04-21-2008 [facility] WITHOUT [facility] MENTION PROF SERV COMPLICATIO N E8498 OTHER 04-21-[address] [place] [address] OF IM[facility]ING OCCURRENCE ASSOCIATES E8859 FALL FROM 04-21-2008 [place] OTHER MEDICAL SLIPPING IMAGING TRIPPING OR ASSOCIATES STUMBLING V065 NEED 04-21-2008 [facility] W/TETANUS-D [facility] 7099 UNSPECIFIED 03-16-2008 ALVARADO DISORDER JR, J [...] 47 DE ZA 11 17 17 73 TX 0 43 PH IN AR E MA [...] 34 20 20 DE 90 11 11 LA 1 PH CH AR AE MA L CY S OF CY NT HI AN A DI 00 09 09 0 20 10 EA 24 GA Ac CL 78 -1 -[address] 13 IN ti OF 11 6- 6- 00 SI 17 EY ve EN 78 20 20 DE AC 90 11 11 LA 1 PH CH SO AR AE D MA L EC CY S 75 OF MG CY NT TA HI B AN A TX 00 05 05 5 30 30 EA [...] 6- 6- 00 SI 17 ER ve TX 02 20 20 DE SO ED 20 [...] 3- 3- 00 SI 40 HE ve LA 21 20 20 DE NS DE 61 [...] ti YL 15 SI 55 ER ve TX 02 20 20 DE SO ED 20 10 10 N NI 7 PH RO SO AR BE LO MA RT NE CY W 4 OF MG CY DO NT SE HI PK AN A TX 00 05 05 0 12 2 EA [...] 8- 4- 00 IC 66 Av ve TX 00 20 20 ai ED 10 08 [...] ai ZA 11 08 08 PH la TX 0 AR bl IN MA e E CY 10 MG TA BL ET Encounters Encounter Start End Date Code Location Performer Type Date [facility] - 7 7 [facility] - 6 6 [facility] - 6 6 [facility] - 1 1 [facility] - 1 1 [facility] - 1 1 [facility] - 1 1 [facility] - 0 0 [facility] - 0 0 [facility] - 8 8 [facility] - 8 8 [facility]
--- OUTSIDE RECORDS SUMMARY | 2017-10-12 16:21 | External Medical Summary Rpt | CCD ---
Demographics Preferred Language Sammarinese Marital Status Unknown Presybeterian Affiliation Unknown Race Unknown Ethnic Group Unknown Author Author , LEONIDAS LAUREN Address Unknown Phone Immunization No patient found.
--- OUTSIDE RECORDS SUMMARY | 2017-10-12 16:21 | External Medical Summary Rpt | CCD ---
Demographics Preferred Language Macanese Marital Status Unknown Temple Affiliation Unknown Race Unknown Ethnic Group Unknown Author Author , LEONIDAS LAUREN Address Unknown Phone Immunization No patient found.
--- NOTE | 2017-10-12 17:32 | Urgent Treatment Center Report ---
History of Present Issue Date/Time Seen by Provider 10/12/17 5971 Visit Reason Pt arrived:Walked Presenting Problem:PT C/O LEFT FOOT PAIN. ADVISES SHE WOKE UP TWO DAYS AND HAS HAD PAIN SINCE HARD TO PUT PRESSURE ON HER FOOT Location if Accident: Onset of symptoms date/time:/ or onset unknown for:MEDICAL HX UNKNOWN Have you (or family members/close friends) recently traveled outside the [place]? N If Yes, where/when: Have you had exposure to infectious disease within the past month? TB? Other? Specify: c/o left foot pain since day before yesterday. No pain when woke up that morning but the minute she tried to stand up out of bed, immediate "shooting" pain throughout 2-4th metatarsals. no known injuries. Denies swelling or bruising. Pain primarily with ROM or bearing weight. Tylenol the first day didn't help. Ibuprofen yesterday did help the throbbing. Hasn't taken or tried anything today. Denies redness. Denies hx of gout. No pain in toes or ankle. Source patient Exam Limitations no limitations ALLERGIES Coded Allergies: codeine (Intermediate, I-HIVES 01/11/17) hydrocodone (09/26/17) Home Medications Reported Medications No Home Medications (NO HOME MEDICATIONS) History Medical History General CAD? No Angina: No PR: No Hypertension? No Hyperlipidemia? No CHF? No DVT? No PE? No COPD? No Asthma? No Anemia? No GERD? No Gastric ulcers? No GI Bleed? No Hernia? No Thyroid Problems? No Hypothyroidism? No CVA? No Seizures? No Diabetes? No Renal Insuffiency? No UTI? No Stones? No BPH? No GB Disease: No Nephritic Syndrome? No Asplenia? No Hepatitis? No Sickle Cell Disease? No Arthritis? No Migraines? No Cataracts? No Glaucoma? No MRSA? No HIV? No TB? No Anxiety? No Depression? No Cancer? No More? No Immunization HX DT/Tetanus 1-4 YRS Surgical Hx Previous Surgery?Y Tubal Ligation X 1 TEETH EXTRACTION Family History Family HX Diabetes No CAD No Hypertension No Hyperlipidemia No Cancer No TB No Social History Smoking Hx Smoker: Never Smoker Tobacco: No Packs/day < 1 Pack Alcohol Alcohol: No Review of Systems All Other Systems Reviewed and Negative (as appropriate for CC) Constitutional denies fever, denies malaise, denies weakness Musculoskeletal see HPI Skin see HPI Psychiatric/Neurological denies numbness, denies paresthesia, denies tingling Physical Exam Vital Signs Vital Signs Date Time Temp Pulse Resp B/P Pulse O2 O2 Flow FiO2 Ox Delivery Rate 10/12 1618 98.1 84 12 142/70 97 General Appearance normal appearance, no apparent distress Respiratory Status No: respiratory distress. Cardiovascular no peripheral edema Peripheral Pulses Pulses normal Yes (PT/DP) Back gait abnormality (favoring left foot) Extremities normal inspection (left ankle, foot, digits), limited dorsiflexion left ankle due to increases pain, c/o pain w/ ROM of 2-5th toes on left but full ROM, TTP 2nd, 3rd, 4th proximal end metatarsals dorsal surface only; no MTP pain , redness, swelling Strength 5 Lower Ext (L), 5 Lower Ext (R) Neurologic alert, no motor/sensory deficits, oriented x 3 Skin intact, normal color, warm/dry Medical Decision Making LABS/Meds/Orders Pt receiving controlled substance in ED? No Results/Orders Orders Procedure Date/time Status STABILIZE JOINT 10/12 1747 Active FOOT-LT-3 VIEWS 10/12 1618 Active XRAY/CT/US XRAY/CT/US XRAY foot (left) XR interpretation by reviewed by me (w/ Dr. Villegas, ER ) Xray Results no acute findings Departure Departure Time of Disposition 1743 Disposition DC Home or Self Care(routine) Clinical Impression Primary Impression: Left foot pain Condition STABLE Referrals STEFANY BELL DPM If no improvement with rest, ice, elevation, nonweight bearing and naproxen then follow up with your primary care doctor. if you do not have a primary care doctor, Dr. Bell is our foot/ankle specialist here at the hospital. Call her office for a follow up appointment. Be sure they know you had xrays at [facility]. Patient Instructions DI for Foot Pain Additional Instructions * weight bearing as tolerated. If painful, continue to use crutches and don't walk on it. * Rest * ice 15-20 mins 3-4 times a day * Arj wrap for support and swelling unless in shower. Be sure not too tight but not too loose either * Elevate as discussed as much as possible to help reduce swelling and therefore , pain * naproxen every 12 hours as needed for pain and inflammation. If you need something more, you can take tylenol every 4 hours as needed as long as your primary care provider has told you it is ok to take both. * No additional anti-inflammatories like motrin, aleve, advil with the above amount of naproxen. You CAN still take Tylenol every 4 hours as needed if you need something more for pain. Discharge Counseling Counseled pt/family regarding diagnosis, test results, medications/RX, home care, follow up needs Prescriptions Current Visit Scripts NAPROXEN (NAPROSYN 500MG TAB) 500 MG PO BID #20 TAB take with food at 0808
[2017-10-12] MEDS ORDERED: NAPROSYN 500MG500 MG PO (17:46)
[2017-10-12 17:56] VITALS: BP 142/70
--- NOTE | 2017-10-13 08:17 | RADIOLOGY REPORT PS360 ---
FOOT-LT-3 VIEWS COMPARISON: Left foot 07/04/2010 HISTORY: Left foot pain TECHNIQUE: AP lateral and oblique views FINDINGS: The tarsal bones metatarsals and phalanges appear intact with no evidence of recent or old fracture. There is no significant arthritic change. There is some flattening of the plantar arch. There is a moderate size spur of the calcaneus at insertion of plantar tendon. IMPRESSION: Mild pes planus and calcaneal spur
== END 2017-10-12 18:02 | disposition home or self-care (01) ==
LOC: UTC 16:12
DX: M79.672 Pain in left foot (principal); Z88.6 Allergy status to analgesic agent

== ENCOUNTER → 2017-10-22 | Outpatient (CLI) | payer MEDICAID ==
[~2017-10-22] MED LIST changes: +FLAGYL500 M1 PO; +NAPROSYN 500MG500 MG PO
[2017-10-22 13:42] LABS: HEMOGLOBIN 13.5 g/dL (12.2-16.2); LYMPH # 1.4 K/mm3 (0.7-4.5); LYMPH % 19.2 % (10-50.0)
[2017-10-22 14:22] LABS: BUN 13 mg/dL (7-18); GFR (ESTIMATED) 70 ML/MIN (59-)
== END ==
LOC: LAB 13:19
PROVIDERS: Nurse Practitioner Family
DX: R53.83 Other fatigue (principal); E55.9 Vitamin D deficiency, unspecified

== ENCOUNTER 2017-10-24 16:29 | Emergency (ER) | payer MEDICAID ==
[~2017-10-24] VITALS: Ht 165.1 cm; Wt 101.2 kg
[~2017-10-24 16:29] MED LIST changes: -FLAGYL500 M1 PO
--- OUTSIDE RECORDS SUMMARY | 2017-10-24 16:39 | External Medical Summary Rpt | CCD ---
Author Author , LEONIDAS LAUREN Address Unknown Phone [email or web address] Care Team Providers Care Loan And Credit Manager Name Role Phone A Shakeel CENTENO MD P[facility], A Unavailable Unavailable Shakeel CENTENO MD PSC Sam ALVARADO JR, V, Unavailable Unavailable Sam ALVARADO JR, V [facility]available [facility] Unavailable [facility], Unavailable Unavailable [facility] Unavailable Unavailable [place], [facility] ANTHON[facility], Unavailable Unavailable [facility] Unavailable Unavailable INC, [facility] Unavailable [facility]available [facility], [facility]DEN DODD, Unavailable Unavailable [facility], [facility]available Unavailable [facility] Un[facility], [facility], Unavailable Unavailable [facility] Unavailable Unavailable SERVICES, [facility], Unavailable Unavailable [facility], [id number], Unavailable Unavailable [id number] DON, Unavailable Unavailable [facility] DON Purpose Continuity of Care Document - 03-05-2008 through 2016 Problems Code Diagnosis DOS Provider Status [id number] PAIN IN 07-23-2017 [facility] [id number] PAIN IN 01-11-2017 [facility] P R079 CHEST PAIN 01-11-2017 [facility] Z720 TOBACCO USE 01-11-2017 [facility] P J029 ACUTE 10-31-2016 [facility] UNSPECIFIED R4182 ALTERED 10-31-2016 [facility] UNSPECIFIED N390 URINARY 08-24-2016 [facility] TRACT PHYSICIAN INFECTION GROUP SITE NOT SPECIFIED J3489 OTHER 07-25-2016 [facility] SPECIFIED PHYSICIAN DISORDERS GROUP NOSE AND NASAL SINUSES R51 HEADACHE 07-25-2016 [facility] [id number] HORDEOLUM 07-07-2016 [facility] EYELID H0012 CHALAZION 07-07-2016 [facility], [facility] PLL[facility] 7823 EDEMA 06-30-2013 Isis CENTENO MD [facility] 05515 OVERWEIGHT 10-26-2012 [facility] 3569 UNSPEC 10-26-2012 [facility] HEREDIT&IDI DON OPATHIC PERIPHERAL NEUROPATHY 3829 UNSPECIFIED 09-01-2011 [facility] OTITIS DON MEDIA 4618 OTHER ACUTE 09-01-2011 [facility] SINUSITIS DON 4660 ACUTE 09-01-2011 [facility] BRONCHITIS DON 52764 SPRAIN AND 08-03-2011 [facility] UNSPECIFIED INC SITE OF HAND 60776 SPRAIN AND 08-03-2011 [facility] UNSPECIFIED SERVICES SITE OF FOOT 9594 INJURY 08-03-2011 [facility] OTHER [facility]ICAL UNSPECIFIED IMAGING ASS HAND EXCEPT FINGER 462 ACUTE 05-28-2011 [facility] 2724 OTHER AND 03-27-2011 [facility] UNSPECIFIED DON HYPERLIPIDE ROHAN 7831 ABNORMAL 03-22-2011 [facility] V180 FAMILY 03-22-2011 [facility]ISTORY [facility] DIABETES INC MELLITUS 7242 LUMBAGO 02-23-2011 [facility] 7245 UNSPECIFIED 02-23-2011 [facility] E9278 OTH 02-23-2011 [facility] TRENUOUS&RE SERVICES PETITIVE MVMNTS/LOAD S 15885 DENTAL 09-29-2010 [facility] CARIES YOUSIF EXTENDING INTO PULP 5253 RETAINED 09-29-2010 [facility] DENTAL ROOT YOUSIF 28649 OTHER 07-11-2010 [facility] SPECIFIED DON DISORDERS OF URINARY TRACT 7881 DYSURIA 07-11-2010 [facility] DON 37325 UNSPECIFIED 07-04-2010 [facility] ANKLE SERVICES SPRAIN AND STRAIN 9597 INJURY 07-04-2010 [facility] OTHER&[facility] CIFIED KNEE IMAGING ASS LEG ANKLE&FOOT 77555 PAIN IN 04-20-2010 [facility] JOINT, [facility] ANKLE AND IM[facility] FOOT [facility]OC[facility] 90343 SWELLING OF 04-20-2010 [facility] V7231 ROUTINE 02-03-2010 [facility] [place] [facility] AL EXAMINATION 463 ACUTE 08-03-2008 [facility] 6260 ABSENCE OF 08-03-2008 ALVARADO MENSTRUATIO JR, J V N 73723 OPEN WOUND 04-21-2008 [facility] MENTION PROF JANET COMPLICATIO N E8498 OTHER 04-21-[address] [facility] [address] [facility]CCURRENCE [facility] E8859 FALL FROM 04-21-2008 [facility] OTHER MEDICAL SLIPPING IMAGING TRIPPING OR ASSOCIATES STUMBLING V065 NEED 04-21-2008 [facility] VACCINATION PROF JANET W/TETANUS-D [facility] 7099 UNSPECIFIED 03-16-2008 [facility] DISORDER , J V OF SKIN&SUBCUT ANEOUS TISSUE 9174 FOOT&TOE 03-06-2008 [facility] INSECT BITE JR, J V NONVENOMOUS W/O MENTION INF H00.019 [...] 47 DE ZA 11 17 17 73 GA 0 43 PH IN AR E MA [...] CY NT TA HI B AN A GA 00 05 05 5 30 30 EA [...] CY E NT HI AN A 00 11 11 0 20 4 EA 20 HE Ac 05 -1 -[address] 00 ND ti 44 6- 6- 00 SI 18 ER ve 65 20 20 DE SO 02 10 [address] AR BE MA RT CY W OF CY NT HI AN A ME 00 11 11 0 21 6 EA 20 HE Ac TH 78 -1 -[address] 00 ND ti YL 15 6- 6- 00 SI 17 ER ve GA 02 20 20 DE SO ED 20 [...] ti YL 15 SI 55 ER ve GA 02 20 20 DE SO ED 20 10 10 N NI 7 PH RO SO AR BE LO MA RT NE CY W 4 OF MG CY DO NT SE HI PK AN A 00 05 05 0 20 4 EA 17 HE Ac 05 -2 -[address] 68 ND ti 44 1 SI 58 ER ve 65 20 20 DE SO 02 10 [address] AR BE MA RT CY W OF CY NT HI AN A GA 00 05 05 0 12 2 EA [...] .0 ST 68 ND ti IC 12 1- 1- 00 SI 57 ER ve IL 61 20 [...] ST 64 ND ti 10 8- 8 SI 34 ER ve 38 20 [...] 8- 4- 00 IC 66 Av ve GA 00 20 20 ai ED 10 08 [...] ai ZA 11 08 08 PH la GA 0 AR bl IN MA e E CY 10 MG TA BL ET Results Labs Lab Lab Date Result Refere Interp Status Commen Order Detail nces retati t Range on Serum or plasma 25-hydroxyvitamin D samina (10-22-2017 10:05) Serum 10-22-2 = 17.4 30.0-10 complet or 017 ng/mL 0.0 ed plasma 10:05 25-hydr oxyvita min D samina Comment: Vitamin D deficiency has been defined by the [place] of Comment: Medicine and an Endocrine Society practice guideline as a Comment: level of serum 25-OH vitamin D less than 20 ng/mL (1,2). Comment: The Endocrine Society went on to further define vitamin D Comment: insufficiency as a level between 21 and 29 ng/mL (2). Comment: 1. IOM ([place] of Medicine). 2010. Dietary reference Comment: intakes for calcium and D. [place]: The Comment: National AcademViVu Press. Comment: 2. Lesa ZAMORA, Gino CEJA, Theodora MARX, et al. Comment: Evaluation, treatment, and prevention of vitamin D Comment: deficiency: an Endocrine Society clinical practice Comment: guideline. JCEM. 2010; 96(7):3837-69. Comment: Performed at: - [facility] Comment: [id number], [place], [place] [id number] Comment: Chucking Lathe Operator: Corey Rendon PhD, Phone: [phone] Hemoglobin A1c measurement (10-22-2017 10:05) Hemoglo 5.8 % 0.0-7.0 complet bin A1c 017 ed 10:05 Comment: < 6% NON-DIABETIC LEVEL Comment: < 7% CONTROLLED DIABETIC LEVEL Comment: > 8% POORLY CONTROLLED DIABETIC LEVEL CBC w auto diff (10-22-2017 10:05) Granulo = 76.2 37.0-80 complet cyte 017 % .0 ed percent 10:05 age Blood = 5.7 1.8-7.8 complet granulo 017 K/mm3 ed cytes 10:05 automat ed count (numb Automat = 0.8 % 0.1-12. complet ed 017 0 ed blood 10:05 eosinop hils/10 0 leukocy t Automat = 0.1 0.0-0.4 complet ed 017 K/mm3 ed blood 10:05 eosinop hil count Baso % = 0.4 % 0.1-2.0 complet 017 ed 10:05 Automat = 0.0 0-0.2 complet ed 017 K/MM3 ed blood 10:05 basophi l count (count/ vo Blood = 7.5 4.8-10. complet leukocy 017 K/MM3 8 ed willi 10:05 count (number /volume ) Automat = 15.2 11.5-17 complet ed 017 % .5 ed erythro 10:05 cyte distrib ution width Red = 5.01 4.2-5.4 complet blood 017 M/mm3 ed cell 10:05 count Blood = 226 142-424 complet platele 017 K/mm3 ed t count 10:05 Automat = 9.6 7.4-10. complet ed 017 fl 4 ed blood 10:05 platele t mean volume lalita Twiggs % = 3.4 % 1.7-9.3 complet 017 ed 10:05 Absolut = 0.3 0.1-1.0 complet e 017 K/mm3 ed monocyt 10:05 e count Automat = 84.4 82.2-97 complet ed 017 fl .8 ed erythro 10:05 cyte mean corpusc ular v Automat = 31.9 31.8-35 complet ed 017 g/dl .4 ed erythro 10:05 cyte mean corpusc ular h Mean = 26.9 27-31.2 complet corpusc 017 pg ed ular 10:05 hemoglo bin (MCH) determ Lymphoc = 19.2 10-50.0 complet yte 017 % ed count, 10:05 blood, automat ed Absolut = 1.4 0.7-4.5 complet e 017 K/mm3 ed lymphoc 10:05 yte count Blood = 13.5 12.2-16 complet hemoglo 017 g/dL .2 ed bin 10:05 measure ment (mass/v olum Blood = 42.3 37.0-47 complet hematoc 017 % .0 ed rit 10:05 (volume fractio n) Serum or plasma thyroid stimulating horm (10-22-2017 10:05) Serum = 1.38 0.358-3 complet or 017 uIU/ml .740 ed plasma 10:05 thyroid stimula ting horm Lipid profile (10-22-2017 10:05) Serum = 44.4 0-40 complet or 017 ed plasma 10:05 cholest alessia in VLDL samina Serum = 222 30-200 complet or 017 mg/dL ed plasma 10:05 triglyc eride measure ment Serum = 157.6 0-130 complet or 017 mg/dL ed plasma 10:05 cholest alessia in LDL measu Serum = 39.0 40-60 complet or 017 MG/DL ed plasma 10:05 cholest alessia in HDL measu Total = 241 < 200 complet cholest 017 mg/dL ed alessia 10:05 measure ment Serum or plasma free thyroxine (T4) samina (10-22-2017 10:05) Serum 2 = 1.10 0.76-1. complet or 017 ng/dL 46 ed plasma 10:05 free thyroxi ne (T4) samina Comprehensive metabolic panel (10-22-2017 10:05) Protein = 6.9 6.4-8.2 complet total 017 gm/dL ed ser/heydi 10:05 s ALT = 15 12-78 complet (SGPT) 017 U/L ed ser/heydi 10:05 s Serum = 11 15-37 complet or 017 U/L ed plasma 10:05 asparta te aminotr ansfera Serum = 139 136-145 complet sodium 017 mmoL/L ed measure 10:05 ment Serum = 5.1 3.5-5.1 complet potassi 017 mmoL/L ed um 10:05 measure ment Serum = 92 74-106 complet or 017 mg/dL ed plasma 10:05 glucose measure ment (mas Serum = 3.3 1.3-3.2 complet globuli 017 gm/dL ed n 10:05 measure ment (mass/v olume) Estimat = 70 59- complet ed 017 ML/MIN ed glomeru 10:05 lar filtrat ion rate (GF Comment: REFERENCE RANGE: >60 ML/MIN/1.73 SQUARE METERS Comment: If this patient is -[place], then multiply the Comment: result by 1.210. Serum = 0.9 0.55-1. complet or 017 mg/dL 02 ed plasma 10:05 creatin ine measure ment ( Carbon = 26 21.0-32 complet dioxide 017 mmoL/L .0 ed 10:05 measure ment Serum = 105 98-107 complet or 017 mmoL/L ed plasma 10:05 chlorid e measure ment (mo Serum = 9.0 8.5-10. complet or 017 mg/dL 1 ed plasma 10:05 calcium measure ment (mas Serum = 13 7-18 complet or 017 mg/dL ed plasma 10:05 urea nitroge n measure men Serum = 0.2 0.2-1.0 complet or 017 mg/dL ed plasma 10:05 total bilirub in measure m Serum = 78 46-116 complet or 017 U/L ed plasma 10:05 alkalin e phospha tase lalita Serum = 3.6 3.4-5.0 complet or 017 gm/dL ed plasma 10:05 albumin measure ment (mas Serum = 1.1 1.1-1.8 complet or 017 ed plasma 10:05 albumin /globul in mass ra Hemoglobin A1c in Blood (10-22-2017 10:05) Hemoglo 5.8 % 0.0% Normal complet bin A1c 017 - ed in 10:05 7.0% Blood Urinalysis by dipstick (09-26-2017 11:44) Urine Clear CLEAR complet appeara 017 Clear L ed nce 11:44 determi nation Urine 0.2 0.2 NEG complet urobili 017 L ed nogen 11:44 E.U./dL detecti on by test str Urine NEGATIV NEG complet nitrite 017 E ed 11:44 NEGATIV detecti E L on by test strip Urine TRACE NEG complet leukocy 017 TRACE L ed te 11:44 esteras e detecti on by au Urine = 1.020 1.005-1 complet specifi 017 .030 ed c 11:44 gravity measure ment Urine = NEG complet protein 017 NEGATIV ed 11:44 E mg/dL measure ment by automat ed t Urine = 5.5 5.0-8.5 complet pH 017 ed 11:44 Urine NEGATIV NEG complet ketones 017 E ed 11:44 NEGATIV detecti E L on by mg/dL automat ed willi Glucose = NEG complet ur 017 NEGATIV ed test 11:44 E strip Urine YELLOW YELLOW complet color 017 YELLOW ed 11:44 L Urine NEGATIV NEG complet blood 017 E ed detecti 11:44 NEGATIV on E L Urine NEGATIV NEG complet total 017 E ed bilirub 11:44 NEGATIV in E L detecti on by test Urinalysis macro (dipstick) panel in Urine (09-26-2017 11:44) Appeara Clear CLEAR complet nce of 017 ed Urine 11:44 Bilirub NEGATIV NEG complet in 017 E ed [Presen 11:44 ce] in Urine by Test strip Erythro NEGATIV NEG complet cytes 017 E ed [Presen 11:44 ce] in Urine Color YELLOW YELLOW complet of 017 ed Urine 11:44 Ketones NEGATIV NEG complet 017 E ed [Presen 11:44 ce] in Urine by Automat ed test strip Leukocy TRACE NEG Abnorma complet te 017 l ed esteras 11:44 e [Presen ce] in Urine by Automat ed test strip Nitrite NEGATIV NEG complet 017 E ed [Presen 11:44 ce] in Urine by Test strip Urobili 0.2 NEG complet nogen 017 ed [Presen 11:44 ce] in Urine by Test strip Treponema pallidum IgG Ab [Presence] in Serum [...] complet N 013 ed SOURCE 13:15 CHART [id number] complet NUMBER 013 ed 13:15 Trepone Pending complet ma 013 ed pallidu 13:15 m IgG Ab [Presen ce] in Serum by Immunoa ssay Encounters Encounter Start End Date Code Location Performer Type Date [facility] - 7 7 [facility] 6 [facility] - [facility] 1 [facility] - 1 1 [facility] - 1 1 [facility] - 1 1 [facility] - 0 0 [facility] - 0 0 [facility] - [facility] 8 [facility] 8 [facility]
--- OUTSIDE RECORDS SUMMARY | 2017-10-24 16:39 | External Medical Summary Rpt | CCD ---
Author Author , LEONIDAS LAUREN Address Unknown Phone [email or web address] Care Team Providers Care Hydrogeology Professor Name Role Phone A Shakeel CENTENO MD P[facility], A Unavailable Unavailable Shakeel CENTENO MD PSC Sam ALVARADO JR, V, Unavailable Unavailable Sam ALVARADO JR, V [facility], Un[facility]available [facility], Un[facility] XOCHILT WYMAN, Unavailable Unavailable XOCHILT WYMAN [facility] Unavailable Unavailable [place], [facility] CYNT[facility]Y ANTHONY, Unavailable Unavailable [facility] Unavailable Unavailable INC, [facility] Unavailable Unavailable HOSPITAL [facility], [facility], Unavailable Unavailable H[facility] D[facility], [facility]available Unavailable [facility] Unavailable Unavailable [facility]ING [facility], [facility], Unavailable Unavailable [facility] Unavailable Unavailable SERVICES[facility], Unavailable Unavailable FAUSTINA, [id number], Unavailable Unavailable [id number] DON, Unavailable Unavailable [facility] DON Purpose Continuity of Care Document - 03-05-2008 through 2016 Problems Code Diagnosis DOS Provider Status [id number] PAIN IN 07-23-2017 [place] [facility] [id number] PAIN IN 01-11-2017 [facility] P R079 CHEST PAIN 01-11-2017 [place] UNSPECIFIED [facility]ING [facility] Z720 TOBACCO USE 01-11-2017 [facility] P J029 ACUTE 10-31-2016 [facility] UNSPECIFIED R4182 ALTERED 10-31-2016 [facility] UNSPECIFIED N390 URINARY 08-24-[address] [facility] TRACT PHYSICIAN INFECTION GROUP SITE NOT SPECIFIED J3489 OTHER 07-25-[address] [facility] SPECIFIED PHYSICIAN DISORDERS GROUP NOSE AND NASAL SINUSES R51 HEADACHE 07-25-[address] [facility] R15006 HORDEOLUM 07-07-2016 [facility] RIGHT LOWER INC EYELID H0012 CHALAZION 07-07-2016 [facility], EYELID PLLC 7823 EDEMA 06-30-2013 Isis CENTENO MD [facility] 63360 OVERWEIGHT 10-26-2012 [facility] 3569 UNSPEC 10-26-2012 [facility] HEREDIT&IDI DON OPATHIC PERIPHERAL NEUROPATHY 3829 UNSPECIFIED 09-01-2011 [facility] OTITIS DON MEDIA 4618 OTHER ACUTE 09-01-2011 [facility] SINUSITIS DON 4660 ACUTE 09-01-2011 [facility] BRONCHITIS DON 44850 SPRAIN AND 08-03-2011 [facility] UNSPECIFIED INC SITE OF HAND 94557 SPRAIN AND 08-03-2011 [facility] UNSPECIFIED SERVICES SITE OF FOOT 9594 INJURY 08-03-2011 [place] OTHER AND MEDICAL UNSPECIFIED IMAGING ASS HAND EXCEPT FINGER 462 ACUTE 05-28-2011 [facility] 2724 OTHER AND 03-27-2011 [facility] UNSPECIFIED DON HYPERLIPIDE ROHAN 7831 ABNORMAL 03-22-2011 [facility] V180 FAMILY 03-22-2011 [facility] DIABETES INC MELLITUS 7242 LUMBAGO 02-23-2011 [facility] 7245 UNSPECIFIED 02-23-2011 [facility] BACKACHE [facility]Y SERVICES E9278 OTH 02-23-2011 [facility] OVEREXERT&S EMERGENCY TRENUOUS&RE SERVICES PETITIVE MVMNTS/LOAD S 01319 DENTAL 09-29-2010 [facility] CARIES YOUSIF EXTENDING INTO PULP 5253 RETAINED 09-29-2010 [facility] DENTAL ROOT YOUSIF 37132 OTHER 07-11-2010 [facility] SPECIFIED DON DISORDERS OF URINARY TRACT 7881 DYSURIA 07-11-2010 [facility] DON 22585 UNSPECIFIED 07-04-2010 [facility] S[facility] OF EMERGENCY ANKLE SERVICES SPRAIN AND STRAIN 9597 INJURY 07-04-2010 [place] OTHER&UNSPE MEDICAL CIFIED KNEE IMAGING ASS LEG ANKLE&FOOT 07107 PAIN IN 04-20-2010 [place] JOINT, MEDICAL ANKLE AND IMAGING FOOT ASSOCIATES 64859 SWELLING OF 04-20-2010 [place] [facility] V7231 ROUTINE 02-03-2010 [facility] AL EXAMINATION 463 ACUTE 08-03-2008 [facility] 6260 ABSENCE OF 08-03-2008 ALVARADO MENSTRUATIO JR, J V N 79331 OPEN WOUND 04-21-2008 [facility] MENTION PROF JANET COMPLICATIO N E8498 OTHER 04-21-[address] [place] [address] [facility] OF IM[facility]ING OCCURRENCE ASSOCIATES E8859 FALL FROM 04-21-2008 [place] OTHER MEDICAL SLIPPING IMAGING TRIPPING OR ASSOCIATES STUMBLING V065 NEED 04-21-2008 [facility] VACCINATION PROF JANET W/TETANUS-D [facility] 7099 UNSPECIFIED 03-16-2008 [facility] DISORDER , [...] 34 20 20 DE 90 11 11 AZ 1 PH CH AR AE MA L CY S OF CY NT HI AN A DI 00 09 09 0 20 10 EA 24 GA Ac CL 78 -1 -[address] 13 IN ti OF 11 6- 6- 00 SI 17 EY ve EN 78 20 20 DE AC 90 11 11 AZ 1 PH CH SO AR AE D [...] 3- 3- 00 SI 40 HE ve AZ 21 20 20 DE NS DE 61 [...] W OF CY NT HI AN A AR 00 05 05 0 [...] D deficiency has been defined by the [place] of Comment: Medicine and an Endocrine Society practice guideline as a Comment: level of serum 25-OH vitamin D less than 20 ng/mL (1,2). Comment: The Endocrine Society went on to further define vitamin D Comment: insufficiency as a level between 21 and 29 ng/mL (2). Comment: 1. IOM ([place] of Medicine). 2010. Dietary reference Comment: intakes for calcium and D. [place]: The Comment: National [employer]Carolina [employer]. Comment: 2. Lesa ZAMORA, Gino CEJA, Theodora MARX, et al. Comment: Evaluation, treatment, and prevention of vitamin D Comment: deficiency: an Endocrine Society clinical practice Comment: guideline. JCEM. 2010; 96(7):8365-95. Comment: [facility]formed at: - [facility] Comment: [address], [place], [place] [id number] Comment: Doweler: Corey Rendon PhD, Phone: [phone] Hemoglobin A1c measurement (10-22-2017 10:05) Hemoglo 5.8 [...] blood 10:05 platele t mean volume lalita Hodgeman % = 3.4 % 1.7-9.3 complet 017 [...] SQUARE METERS Comment: If this patient is -[place]icarag[place], then multiply the Comment: result by 1.210. [...] complet N 013 ed SOURCE 13:15 CHART 192002 complet NUMBER 013 ed 13:15 Trepone Pending complet ma 013 ed pallidu 13:15 m IgG Ab [Presen ce] in Serum by Immunoa ssay Encounters Encounter Start End Date Code Location Performer Type Date [facility] - [facility] 8 8 [facility] - 8 8 [facility]
--- OUTSIDE RECORDS SUMMARY | 2017-10-24 16:41 | External Medical Summary Rpt | CCD ---
Demographics Preferred Language Mauritanian Marital Status Unknown Synagogue Affiliation Unknown Race Unknown Ethnic Group Unknown Author Author , LEONIDAS LAUREN Address Unknown Phone Immunization No patient found.
--- OUTSIDE RECORDS SUMMARY | 2017-10-24 16:41 | External Medical Summary Rpt | CCD ---
Author Author , LEONIDAS Organization LEONIDAS Address Unknown Phone [email or web address] Care Team Providers Care Mobile Heavy Equipment Operator Name Role Phone A Shakeel CENTENO MD PSC, A Unavailable Unavailable Shakeel CENTENO MD PSC Sam ALVARADO JR, V, Unavailable Unavailable Sam ALVARADO JR, V [facility], Un[facility] Unavailable [facility], Un[facility] XOCHILT WYMAN, Unavailable Unavailable XOCHILT WYMAN [facility] Unavailable Unavailable ADE, [facility] TO[facility] PEARSON, Unavailable Unavailable [facility] Unavailable Unavailable INC, [facility] Unavailable Unavailable HOSPITAL P, [facility] HAY[facility], Unavailable Unavailable H[facility], Unavailable Unavailable [facility] Unavailable [facility]available IM[facility]ING [facility], [facility], Unavailable Unavailable [facility] Unavailable Unavailable SERVICES, [facility], Unavailable Unavailable FAUSTINA, [id number], Unavailable Unavailable [id number]ARR[facility] DON, Unavailable Unavailable HARR[facility] DON Purpose Continuity of Care Document - 03-05-2008 through 2016 Problems Code Diagnosis DOS Provider Status [id number] PAIN IN 07-23-2017 [place] [facility] [id number] PAIN IN 01-11-2017 [facility] ARM [facility] P R079 CHEST PAIN 01-11-2017 [place] UNSPECIFIED [facility]ICAL IMAGING ASS Z720 TOBACCO USE 01-11-2017 [facility] P J029 ACUTE 10-31-2016 [facility] UNSPECIFIED R4182 ALTERED 10-31-2016 [facility] UNSPECIFIED N390 URINARY 08-24-2016 [facility] TRACT PHYSICIAN INFECTION GROUP SITE NOT SPECIFIED J3489 OTHER 07-25-2016 [facility] SPECIFIED PHYSICIAN DISORDERS GROUP NOSE AND NASAL SINUSES R51 HEADACHE 07-25-2016 [facility] [id number] HORDEOLUM 07-07-2016 [facility] RIGHT LOWER INC EYELID H0012 CHALAZION 07-07-2016 [facility], EYELID PLLC 7823 EDEMA 06-30-2013 Isis CENTENO MD [facility] 11648 OVERWEIGHT 10-26-2012 [facility] DON 3569 UNSPEC 10-26-2012 [facility] HEREDIT&IDI DON OPATHIC PERIPHERAL NEUROPATHY 3829 UNSPECIFIED 09-01-2011 [facility] OTITIS DON MEDIA 4618 OTHER ACUTE 09-01-2011 [facility] SINUSITIS DON 4660 ACUTE 09-01-2011 [facility] BRONCHITIS DON 72936 SPRAIN AND 08-03-2011 [facility] UNSPECIFIED INC SITE OF HAND 75928 SPRAIN AND 08-03-2011 [facility] UNSPECIFIED SERVICES SITE OF FOOT 9594 INJURY 08-03-2011 [place] OTHER AND MEDICAL UNSPECIFIED IMAGING ASS HAND EXCEPT FINGER 462 ACUTE 05-28-2011 [facility] 2724 OTHER AND 03-27-2011 [facility] UNSPECIFIED DON HYPERLIPIDE ROHAN 7831 ABNORMAL 03-22-2011 [facility] INC V180 FAMILY 03-22-2011 [facility] DIABETES INC MELLITUS 7242 LUMBAGO 02-23-2011 [facility] 7245 UNSPECIFIED 02-23-2011 [facility]ACHE [facility] E9278 OTH 02-23-2011 [facility] OVEREXERT&S EMERGENCY TRENUOUS&RE SERVICES PETITIVE MVMNTS/LOAD S 22224 DENTAL 09-29-2010 BLA[facility] CARIES YOUSIF EXTENDING INTO PULP 5253 RETAINED 09-29-2010 [facility] DENTAL ROOT YOUSIF 73705 OTHER 07-11-2010 [facility] SPECIFIED DON DISORDERS OF URINARY TRACT 7881 DYSURIA 07-11-2010 [facility] DON 03929 UNSPECIFIED 07-04-2010 [facility] SITE OF EMERGENCY ANKLE SERVICES SPRAIN AND STRAIN 9597 INJURY 07-04-2010 [place] OTHER&UNSPE MEDICAL CIFIED KNEE IMAGING ASS LEG ANKLE&FOOT 72385 PAIN IN 04-20-2010 [place] JOINT, MEDICAL ANKLE AND IMAGING FOOT ASSOCIATES 53794 SWELLING OF 04-20-2010 [place] [facility] V7231 ROUTINE 02-03-2010 [facility] AL EXAMINATION 463 ACUTE 08-03-2008 [facility] 6260 ABSENCE OF 08-03-2008 JENNY MENSTRUATIO JR, J V N 64585 OPEN WOUND 04-21-2008 [facility] WITHOUT [facility] MENTION PROF SERV COMPLICATIO N E8498 OTHER 04-21-[address] [place] SPECIFIED [facility] OF IMAGING OCCURRENCE ASSOCIATES E8859 FALL FROM 04-21-2008 [place] OTHER MEDICAL SLIPPING IMAGING TRIPPING OR ASSOCIATES STUMBLING V065 NEED 04-21-2008 [facility] PROF SERV W/TETANUS-D [facility] 7099 UNSPECIFIED 03-16-2008 ALVARADO DISORDER JR, J [...] 34 20 20 DE 90 11 11 TN 1 PH CH AR AE MA L CY S OF CY NT HI AN A DI 00 09 09 0 20 10 EA 24 GA Ac CL 78 -1 -[address] 13 IN ti OF 11 6- 6- 00 SI 17 EY ve EN 78 20 20 DE AC 90 11 11 TN 1 PH CH SO AR AE D [...] OF ET CY NT HI AN A ME 00 [...] W OF CY NT HI AN A AM 00 [...] 3- 3- 00 SI 40 HE ve TN 21 20 20 DE NS DE 61 [...] .0 ST 68 ND ti YL 15 1- 1- 00 SI 55 ER ve GA 02 20 [...] End Date Code Location Performer Type Date [facility] - 7 7 [facility] - 6 6 [facility] 6 [facility] 0 0 [facility] - 8 8 [facility] - 8 8 [facility]
--- OUTSIDE RECORDS SUMMARY | 2017-10-24 16:41 | External Medical Summary Rpt | CCD ---
Demographics Preferred Language Libyan Marital Status Unknown Judaism Affiliation Unknown Race Unknown Ethnic Group Unknown Author Author , LEONIDAS LAUREN Address Unknown Phone Immunization No patient found.
--- OUTSIDE RECORDS SUMMARY | 2017-10-24 16:41 | External Medical Summary Rpt | CCD ---
Author Author , LEONIDAS Organization LEONIDAS Address Unknown Phone [email or web address] Care Team Providers Care Peanut Shaker Name Role Phone A Shakeel CENTENO MD PSC, A Unavailable Unavailable Shakeel CENTENO MD PSC Sam ALVARADO JR, V, Unavailable Unavailable Sam ALVARADO JR, V [facility], Un[facility] Unavailable [facility], Un[facility] XOCHILT WYMAN, Unavailable Unavailable XOCHILT WYMAN [facility] Unavailable Unavailable ADE, [facility] TO[facility] PEARSON, Unavailable Unavailable [facility] Unavailable Unavailable INC, [facility] Unavailable Unavailable HOSPITAL P, [facility] HAYDEN DODD, Unavailable Unavailable [facility], Unavailable Unavailable [facility] Unavailable Unavailable IM[facility]ING [facility], [facility], [facility]available Unavailable [facility] Unavailable Unavailable SERVICES, [facility], Unavailable Unavailable [facility]UST[facility], [id number], Unavailable Unavailable [id number] DON, Unavailable Unavailable [facility] DON Purpose Continuity of Care Document - 03-05-2008 through 2016 Problems Code Diagnosis DOS Provider Status [id number] PAIN IN 07-23-2017 [place] [facility] [id number] PAIN IN 01-11-2017 [facility] ARM [facility] P R079 CHEST PAIN 01-11-2017 [place] UNSPECIFIED MEDICAL IMAGING ASS Z720 TOBACCO USE 01-11-2017 [facility] P J029 ACUTE 10-31-2016 [facility] UNSPECIFIED R4182 ALTERED 10-31-2016 [facility] UNSPECIFIED N390 URINARY 08-24-2016 [facility] TRACT PHYSICIAN INFECTION GROUP SITE NOT SPECIFIED J3489 OTHER 07-25-2016 [facility] SPECIFIED PHYSICIAN DISORDERS GROUP NOSE AND NASAL SINUSES R51 HEADACHE 07-25-2016 [facility] [id number] HORDEOLUM 07-07-2016 [facility] RIGHT LOWER INC EYELID H0012 CHALAZION 07-07-2016 [facility], EYELID PLLC 7823 EDEMA 06-30-2013 Isis CENTENO MD [facility] 90794 OVERWEIGHT 10-26-2012 [facility] 3569 UNSPEC 10-26-2012 [facility] HEREDIT&IDI DON OPATHIC PERIPHERAL NEUROPATHY 3829 UNSPECIFIED 09-01-2011 [facility] OTITIS DON MEDIA 4618 OTHER ACUTE 09-01-2011 [facility] SINUSITIS DON 4660 ACUTE 09-01-2011 [facility] BRONCHITIS DON 46037 SPRAIN AND 08-03-2011 [facility] UNSPECIFIED INC SITE OF HAND 35614 SPRAIN AND 08-03-2011 [facility] UNSPECIFIED SERVICES SITE OF FOOT 9594 INJURY 08-03-2011 [place] OTHER AND MEDICAL UNSPECIFIED IMAGING ASS HAND EXCEPT FINGER 462 ACUTE 05-28-2011 [facility] 2724 OTHER AND 03-27-2011 [facility] UNSPECIFIED DON HYPERLIPIDE ROHAN 7831 ABNORMAL 03-22-2011 [facility] INC V180 FAMILY 03-22-2011 [facility] DIABETES INC MELLITUS 7242 LUMBAGO 02-23-2011 [facility] 7245 UNSPECIFIED 02-23-2011 [facility] BACK[facility]HE [facility]ERGENCY SERVICES E9278 OTH 02-23-2011 [facility] OVEREXERT&S EMERGENCY TRENUOUS&RE SERVICES PETITIVE MVMNTS/LOAD S 31468 DENTAL 09-29-2010 [facility] CARIES YOUSIF EXTENDING INTO PULP 5253 RETAINED 09-29-2010 [facility] DENTAL ROOT YOUSIF 84525 OTHER 07-11-2010 [facility] SPECIFIED DON DISORDERS OF URINARY TRACT 7881 DYSURIA 07-11-2010 [facility] DON 49227 UNSPECIFIED 07-04-2010 [facility] EMERGENCY ANKLE SERVICES SPRAIN AND STRAIN 9597 INJURY 07-04-2010 [place] OTHER&UNSPE MEDICAL CIFIED KNEE IMAGING ASS LEG ANKLE&FOOT 50712 PAIN IN 04-20-2010 [place] JOINT, MEDICAL ANKLE AND IMAGING FOOT ASSOCIATES 02858 SWELLING OF 04-20-2010 [place] [facility] V7231 ROUTINE 02-03-2010 [facility] [place] [facility] AL EXAMINATION 463 ACUTE 08-03-2008 [facility] 6260 ABSENCE OF 08-03-2008 JENNY MENSTRUATIO JR, J V N 95707 OPEN WOUND 04-21-2008 [facility] WITHOUT [facility] MENTION PROF SERV COMPLICATIO N E8498 OTHER 04-21-[address] [place] [address] OF IMAGING OCCURRENCE ASSOCIATES E8859 FALL FROM 04-21-2008 [place] OTHER MEDICAL SLIPPING IMAGING TRIPPING OR ASSOCIATES STUMBLING V065 NEED 04-21-2008 [facility] PROF SERV W/TETANUS-D [facility] 7099 UNSPECIFIED 03-16-2008 ALVARADO DISORDER [...] 47 DE ZA 11 17 17 73 TN 0 43 PH IN AR E MA [...] 34 20 20 DE 90 11 11 DE 1 PH CH AR AE MA L CY S OF CY NT HI AN A DI 00 09 09 0 20 10 EA 24 GA Ac CL 78 -1 -[address] 13 IN ti OF 11 6- 6- 00 SI 17 EY ve EN 78 20 20 DE AC 90 11 11 DE 1 PH CH SO AR AE D MA L EC CY S 75 OF MG CY NT TA HI B AN A TN 00 05 05 5 30 30 EA [...] 6- 6- 00 SI 17 ER ve TN 02 20 20 DE SO ED 20 [...] 3- 3- 00 SI 40 HE ve DE 21 20 20 DE NS DE 61 [...] W OF CY NT HI AN A TN 00 05 05 0 12 2 EA [...] 1- 1- 00 SI 55 ER ve TN 02 20 20 DE SO ED 20 [...] 8- 4- 00 IC 66 Av ve TN 00 20 20 ai ED 10 08 [...] ai ZA 11 08 08 PH la TN 0 AR bl IN MA e E CY 10 MG TA BL ET Encounters Encounter Start End Date Code Location Performer Type Date [facility] - 7 7 [facility] - 6 6 [facility] - 6 6 [facility] 1 1 [facility] 1 1 [facility] 0 0 [facility] - 0 0 [facility] - 8 8 [facility] - 8 8 [facility]
--- OUTSIDE RECORDS SUMMARY | 2017-10-24 16:42 | External Medical Summary Rpt ---
Author Author LIZBETJUANPABLO Johnson, LEONIDAS [employer] Organization [employer] Address Unknown Phone Unavailable Results 25-Hydroxyvitamin D [Mass/volume] in Serum or Plasma Observa Value Referen Units Interpr Notes Date tion ce etation Range 25-Hydrox 30.0 - ng/mL Low Vitamin D Dec 4 yvitamin 100.0 2017 D deficienc 10:05 AM [Mass/vol y has ume] in been Serum or defined Plasma by the [place] of[employer] e and an Endocrine Society practice guideline as alevel of serum 25-OH vitamin D less than 20 ng/mL (1,2).The Endocrine Society went on to further define vitamin Dinsuffic iency as a level between 21 and 29 ng/mL (2).1. IOM (Institut e of Medicine) . 2010. Dietary reference intakes for calcium and D. [place]: [employer] al [employer]ies [employer].2. Lesa MF, Gino NC, Margie Dorsey MARX, et al.Evalua tion, treatment , and preventio n of vitamin Ddeficien cy: an Endocrine Society clinical practiceg uideline. JCEM. 2010; 96(7):191 1-30.Perf ormed at: - [facility] [address] [id number] Data Collection Technician: Corey Rendon PhD, Phone: [phone] Hemoglobin A1c in Blood Observa Value Referen Units Interpr Notes Date tion ce etation Range Hemoglo 5.8 0.0 - % Normal < 6% Oct 22 bin A1c 7.0 NON-KUNAL 2017 in BETIC 10:05 Blood LEVEL< AM 7% CONTROL LED DIABETI C LEVEL> 8% POORLY CONTROL LED DIABETI C LEVEL Comprehensive metabolic 2000 panel in Serum or Plasma Observa Value Referen Units Interpr Notes Date tion ce etation Range Albumin/G 1.1 - 1.8 No No No Oct 22 lobulin informati informati informati 2017 [Mass on in on in on in 10:05 AM ratio] in source source source Serum or data data data Plasma Albumin 3.4 - 5.0 gm/dL Normal No Oct 4 [Mass/vol informati 2016 ume] in on in 10:05 AM Serum or source Plasma data Alkaline 46 - 116 U/L Normal No Oct 22 phosphata informati 2016 se on in 10:05 AM [Enzymati source c data activity/ volume] in Serum or Plasma Bilirubin 0.2 - 1.0 mg/dL Normal No Oct 22 .total informati 2016 [Mass/vol on in 10:05 AM ume] in source Serum or data Plasma Urea 7 - 18 mg/dL Normal No Oct 22 nitrogen informati 2016 [Mass/vol on in 10:05 AM ume] in source Serum or data Plasma Calcium 8.5 - mg/dL Normal No Oct 22 [Mass/vol 10.1 informati 2016 ume] in on in 10:05 AM Serum or source Plasma data Chloride 98 - 107 mmoL/L Normal No Oct 22 [Moles/vo informati 2016 lume] in on in 10:05 AM Serum or source Plasma data Carbon 21.0 - mmoL/L Normal No Oct 22 dioxide, 32.0 informati 2016 total on in 10:05 AM [Moles/vo source lume] in data Serum or Plasma Creatinin 0.55 - mg/dL No No Oct 4 e 1.02 informati informati 2017 [Mass/vol on in on in 10:05 AM ume] in source source Serum or data data Plasma Estimated 59- ML/MIN No REFERENCE Oct 22 informati RANGE: 2017 glomerula on in >60 10:05 AM r source ML/MIN/1. filtratio data 73 SQUARE n rate METERSIf (GF this patient is -A merican, then multiply theresult by 1.210. Globulin 1.3 - 3.2 gm/dL High No Oct 22 [Mass/vol informati 2016 ume] in on in 10:05 AM Serum source data Glucose 74 - 106 mg/dL Normal No Oct 22 [Mass/vol informati 2017 ume] in on in 10:05 AM Serum or source Plasma data Potassium 3.5 - 5.1 mmoL/L Normal No Oct 4 informati 2016 [Moles/vo on in 10:05 AM lume] in source Serum or data Plasma Sodium 136 - 145 mmoL/L Normal No Dec 4 [Moles/vo 2016 lume] in on in 10:05 AM Serum or source Plasma data Aspartate 15 - 37 U/L Low No Oct 4 2016 aminotran on in 10:05 AM sferase source [Enzymati data c activity/ volume] in Serum or Plasma Alanine 12 - 78 U/L Normal No Oct 22 aminotran 2016 sferase on in 10:05 AM [Enzymati source c data activity/ volume] in Serum or Plasma Protein 6.4 - 8.2 gm/dL Normal No Oct 4 [Mass/vol inform2016 ume] in on in 10:05 AM Serum or source Plasma data Thyroxine (T4) free [Mass/volume] in Serum or Plasma Observa Value Referen Units Interpr Notes Date tion ce etation Range Thyroxine 0.76 - ng/dL Normal No Oct 22 (T4) 1.46 2016 free on in 10:05 AM [Mass/vol source ume] in data Serum or Plasma Lipid 1996 panel in Serum or Plasma Observa Value Referen Units Interpr Notes Date tion ce etation Range Cholester < 200 mg/dL High No Oct 4 ol 2016 [Moles/vo on in 10:05 AM lume] in source Unspecifi data ed specimen Cholester 40 - 60 MG/DL Low No Oct 4 ol in HDL 2016 on in 10:05 AM [Mass/vol source ume] in data Serum or Plasma Cholester 0 - 130 mg/dL High No Oct 4 ol in LDL 2016 on in 10:05 AM [Mass/vol source ume] in data Serum or Plasma by cornelia on Triglycer 30 - 200 mg/dL High No Oct 22 lamont 2016 [Moles/vo on in 10:05 AM lume] in source Serum or data Plasma Cholester 0 - 40 No High No Dec 4 ol in informati 2016 VLDL on in on in 10:05 AM [Mass/vol source source ume] in data data Serum or Plasma Thyrotropin [Units/volume] in Serum or Plasma Observa Value Referen Units Interpr Notes Date tion ce etation Range Thyrotrop 0.358 - uIU/ml Normal No Oct 4 in 3.740 2016 [Units/vo on in 10:05 AM lume] in source Serum or data Plasma CBC W Auto Differential panel in Blood Observa Value Referen Units Interpr Notes Date tion ce etation Range Basophils 0 - 0.2 K/MM3 Normal No Oct 222016 [#/volume on in 10:05 AM ] in source Blood by data Automated count Basophils 0.1 - 2.0 % Normal No Oct 22 /100 2016 leukocyte on in 10:05 AM s in source Blood by data Automated count Eosinophi 0.0 - 0.4 K/mm3 Normal No Oct 22 ls 2016 [#/volume on in 10:05 AM ] in source Blood by data Automated count Eosinophi 0.1 - % Normal Oct 22 ls/100 12.0 2016 leukocyte on in 10:05 AM s in source Blood by data Automated count Granulocy 1.8 - 7.8 K/mm3 Normal No Oct 22 willi 2016 [#/volume on in 10:05 AM ] in source Blood by data Automated count Granulocy 37.0 - % Normal No Oct 22 willi/100 80.0 2016 leukocyte on in 10:05 AM s in source Blood by data Automated count Hematocri 37.0 - % Normal No Oct 22 t [Volume 47.0 2016 on in 10:05 AM Fraction] source of Blood data Hemoglobi 12.2 - g/dL Normal No Oct 22 n 16.2 2016 [Mass/vol on in 10:05 AM ume] in source Blood data Lymphocyt 0.7 - 4.5 K/mm3 Normal No Oct 22 es 2016 [#/volume on in 10:05 AM ] in source Unspecifi data ed specimen by Automated count Lymphocyt 10 - 50.0 % Normal No Oct 22 es 2016 [#/volume on in 10:05 AM ] in source Unspecifi data ed specimen by Automated count Erythrocy 27 - 31.2 pg Low No Oct 22 te mean 2016 corpuscul on in 10:05 AM ar source hemoglobi data n [Entitic mass] Erythrocy 31.8 - g/dl Normal No Oct 22 te mean 35.4 2016 corpuscul on in 10:05 AM ar source hemoglobi data n concentra tion [Mass/vol ume] by Automated count Erythrocy 82.2 - fl Normal Oct 22 te mean 97.8 2016 corpuscul on in 10:05 AM ar volume source [Entitic data volume] by Automated count Monocytes 0.1 - 1.0 K/mm3 Normal No Oct 4 inform2016 [#/volume on in 10:05 AM ] in source Blood by data Automated count Monocytes 1.7 - 9.3 % Normal No Oct 4 /100 inform2016 leukocyte on in 10:05 AM s in source Blood by data Automated count Platelet 7.4 - fl Normal No Oct 22 mean 10.4 2016 volume on in 10:05 AM [Entitic source volume] data in Blood by Automated count Platelets 142 - 424 K/mm3 Normal No Oct 4 inform2016 [#/volume on in 10:05 AM ] in source Blood data Erythrocy 4.2 - 5.4 M/mm3 Normal No Oct 4 willi inform2016 [#/volume on in 10:05 AM ] in source Amniotic data fluid Erythrocy 11.5 - % Normal No Oct 22 te 17.5 2016 distribut on in 10:05 AM ion width source [Entitic data volume] by Automated count Leukocyte 4.8 - K/MM3 Normal No Oct 4 s 10.8 2016 [#/volume on in 10:05 AM ] in source Blood data Urinalysis macro (dipstick) panel in Urine Observa Value Referen Units Interpr Notes Date tion ce etation Range Appeara Clear CLEAR No No No Sep 8 nce of informa informa informa 2016 Urine tion in tion in tion in 11:44 source source source AM data data data Bilirub NEGATIV NEG No No No Sep 8 in E informa informa informa 2016 [Presen tion in tion in tion in 11:44 ce] in source source source AM Urine data data data by Test strip Erythro NEGATIV NEG No No No Sep 8 cytes E informa informa informa 2016 [Presen tion in tion in tion in 11:44 ce] in source source source AM Urine data data data Color YELLOW YELLOW No No No Sep 8 of informa informa informa 2017 Urine tion in tion in tion in 11:44 source source source AM data data data Glucose NEG No No No Sep 8 [Mass/vol informati informati informati 2016 ume] in on in on in on in 11:44 AM Urine by source source source Test data data data strip Ketones NEGATIV NEG mg/dL No No Sep 8 E informa informa 2017 [Presen tion in tion in 11:44 ce] in source source AM Urine data data by Automat ed test strip pH of 5.0 - 8.5 No Normal No Sep 8 Urine informati informati 2017 on in on in 11:44 AM source source data data Protein NEG mg/dL No No Sep 8 [Mass/vol informati informati 2017 ume] in on in on in 11:44 AM Urine by source source Automated data data test strip Specific 1.005 - No Normal No Sep 26 gravity 1.030 informati informati 2017 of Urine on in on in 11:44 AM source source data data Leukocy TRACE NEG No Abnorma No Sep 26 te informa l informa 2017 esteras tion in tion in 11:44 e source source AM [Presen data data ce] in Urine by Automat ed test strip Nitrite NEGATIV NEG No No No Sep 8 E informa informa informa 2016 [Presen tion in tion in tion in 11:44 ce] in source source source AM Urine data data data by Test strip Urobili 0.2 NEG E.U./dL No No Sep 26 nogen informa informa 2016 [Presen tion in tion in 11:44 ce] in source source AM Urine data data by Test strip Treponema pallidum IgG Ab [Presence] in Serum by Immunoassay Observa Value Referen Units Interpr Notes Date tion ce etation Range COLLECT JF No No No No Sep 25 OR informa informa informa informa 2013 tion in tion in tion in tion in 1:15 PM source source source source data data data data ETHNICI C No No No No Aug 13 TY informa informa informa informa 2013 tion in tion in tion in tion in 1:15 PM source source source source data data data data PURPOSE ROUTINE No No No No Sep 25 OF informa informa informa informa 2013 EXAM tion in tion in tion in tion in 1:15 PM source source source source data data data data SPECIME BLOOD No No No No Aug 13 N informa informa informa informa 2013 SOURCE tion in tion in tion in tion in 1:15 PM source source source source data data data data CHART [id number] No No No No Sep 25 NUMBER [...] tion that [facility] with the Health Insuran ce [employer] Reve[employer] and Account ability Act. Treponema pallidum IgG [...] source source data data data data CHART [id number] No No No No Sep 25 NUMBER informa informa informa informa 2013 tion in tion in tion in tion in 1:15 PM source source source source data data data data Trepone Pending No No No \.br\ Sep 25 ma informa informa informa is 2013 pallidu tion in tion in tion in report 1:15 PM m IgG source source source contain Ab data data data s [Presen patient ce] in Serum informa by tion Immunoa that ssay must be protect ed in accorda nce with the Health Insuran ce Portabi lity and Account ability Act.
--- OUTSIDE RECORDS SUMMARY | 2017-10-24 16:42 | External Medical Summary Rpt ---
Author Author LIZBETJUANPABLO Johnson, LEONIDAS [facility] Organization [employer] Address Unknown Phone Unavailable Results 25-Hydroxyvitamin D [Mass/volume] in Serum or Plasma Observa Value Referen Units Interpr Notes Date tion ce etation Range 25-Hydrox 30.0 - ng/mL Low Vitamin D Dec 4 yvitamin 100.0 2017 D deficienc 10:05 AM [Mass/vol y has ume] in been Serum or defined Plasma by the [place] of[employer]icin e and an Endocrine Society practice [...] 2010; 96(7):191 1-30.Perf ormed at: - [facility] [address] [id number] Restaurant Service Manager: Corey Rendon PhD, Phone: [phone] Hemoglobin A1c in Blood Observa Value [...] source source data data data data CHART [id number] No No No No Sep 25 NUMBER [...] tion that must be protect ed [facility] with the Health Insuran ce [place] and Account ability Act. Treponema pallidum IgG [...] source source data data data data CHART [id number] No No No No Sep 25 NUMBER [...]
--- NOTE | 2017-10-24 16:49 | Emergency Room Report ---
History of Present Illness Time Seen by MD Negrete Presenting Problem in Triage Pt arrived:Walked Presenting Problem:PT PRESENTS WITH NEW ONSET OF UTI SYMPTOMS STATES SHE WAS TREATED AT [facility], GOT BETTER AND NOW IS HURTING AGAIN STATES SHE TOOK ALL OF HER ATB'S FOR THE LAST GO AROUND Onset of symptoms date/time:/ or onset unknown for:MEDICAL HX UNKNOWN Treatment Prior to Arrival: TOOK ATB'S AND PYRIDIUM FROM [facility]IOR [facility]TI [employer] Provided by:SELF Sepsis Risk Assessment: Temp: 97.1 B/P: 126/89 MAP: 101 Pulse: 81 Resp: 18 Recent fever? N Clinical Suspician of Infection? N Mental Status: 1 - Regular (Normal Baseline) Sepsis Risk:Low Sepsis Risk Have you (or family members/close friends) recently traveled outside the [place]? N If Yes, where/when: Have you had exposure to infectious disease within the past month? TB? Other? Specify: Comment The patient complains of LEFT flank pain for a couple days. It increases with laying down in certain positions. It increases with rotating to the RIGHT. She does not have dysuria or frequency. She says that she was seen last month in the urgent treatment center for similar symptom and was treated for UTI. She was told that if it happened again she might develop a kidney stone and would need to come to the emergency room. No fever. No abdominal pain. ALLERGIES Coded Allergies: codeine (Intermediate, I-HIVES 10/24/17) hydrocodone (10/24/17) Home Medications Active Scripts NAPROXEN (NAPROSYN 500MG TAB) 500 MG PO BID #20 TAB Prov: 10/12/17 Reported Medications No Home Medications (NO HOME MEDICATIONS) History Medical History General CAD? No Angina: No OK: No Hypertension? No Hyperlipidemia? No CHF? No DVT? No PE? No COPD? No Asthma? No Anemia? No GERD? No Gastric ulcers? No GI Bleed? No Hernia? No Thyroid Problems? No Hypothyroidism? No CVA? No Seizures? No Diabetes? No Renal Insuffiency? No End Stage Renal Disease? No UTI? No Stones? No BPH? No GB Disease: No Nephritic Syndrome? No Asplenia? No Hepatitis? No Sickle Cell Disease? No Arthritis? No Migraines? No Cataracts? No Glaucoma? No MRSA? No HIV? No TB? No Anxiety? No Depression? No Cancer? No More? 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 Musculoskeletal back pain Physical Exam Vital Signs Vital Signs Date Time Temp Pulse Resp B/P Pulse O2 O2 Flow FiO2 Ox Delivery Rate 10/24 1848 97.1 84 16 128/82 98 10/24 1847 97.1 84 16 128/82 98 10/24 1846 16 10/24 1743 81 18 124/88 98 10/24 1634 97.1 81 18 126/89 98 General Appearance no apparent distress Eye Exam - bilateral eye normal exam, bilateral eye PERRL, bilateral eye EOMI Ear, Nose, Throat hearing grossly normal, normal ENT inspection Neck normal inspection, non-tender, supple, full range of motion Respiratory Status Yes: trachea midline, chest symmetrical, non tender chest. No: respiratory distress. Lung Sounds bilateral: normal breath sounds, lungs clear. Cardiovascular normal exam, regular rate/rhythm, no peripheral edema, no gallop, no JVD, no murmur, no rub, normal peripheral pulses Peripheral Pulses Pulses normal Yes Gastrointestinal normal bowel sounds, normal exam, non tender, soft, no organomegaly Back normal inspection, no vertebral tenderness, CVA tenderness (L) Extremities non-tender, normal range of motion, normal inspection Neurologic alert, oriented x 3 Mental status normal mood/affect Skin intact, normal color, warm/dry Medical Decision Making LABS/Meds/Orders Pt receiving controlled substance in ED? No Kvng was queried for this patient? Yes Comment [id number] [phone] rxs. Results/Orders Laboratory Tests 10/24/17 1831: Ur Chlamydia DNA (PCR) Cancelled, Urine GC DNA Probe Cancelled 10/24/17 1715: Sodium 138, Potassium 3.9, Chloride 105, Carbon Dioxide 25, BUN 19 H, Creatinine 1.0, Estimated Creat Clear 121, Estimated GFR (MDRD) 62, Glucose 129 H, Calcium 8.4 L, Total Bilirubin 0.2, AST 11 L, ALT 15, Alkaline Phosphatase 82, Total Protein 7.0, Albumin 3.2 L, Globulin 3.8 H, Albumin/Globulin Ratio 0.8 L, WBC 8.9, RBC 4.95, Hgb 13.0, Hct 40.4, MCV 81.6 L, RDW 15.0, Plt Count 227, MPV 7.7, Gran % 70.4, Gran # 6.3, Lymphocytes % 25.0, Monocytes % 2.8, Eosinophils % 1.6, Basophils % 0.3, Lymphocytes # 2.2, Monocytes # 0.3, Eosinophils # 0.1, Basophils # 0.0, PUBS MCHC 32.1, MCH 26.2 L 10/24/17 164: C.trachomatis DNA ([place]) Pending, N.gonorrhoeae RNA Pending, Urine Color YELLOW, Urine Appearance SL CLOUDY, Urine pH 6.0, Ur Specific [place] 1.020, Urine Protein NEGATIVE, Urine Ketones NEGATIVE, Urine Blood NEGATIVE, Urine Nitrate NEGATIVE, Urine Bilirubin NEGATIVE, Urine Urobilinogen 1.0, Ur Leukocyte Esterase 1+ H, Urine RBC NONE, Urine WBC 10-20, Ur Squamous Epith Cells TNTC, Urine Bacteria 3+, Urine Trichomonas 2+, Urine Glucose NEGATIVE Current Medication Orders Sig/Papi Start time Last Medication Dose Route Stop Time Status Admin Ketorolac 30 MG ONCE ONE 10/24 1845 DC 10/24 Tromethamine IV 10/24 1846 1846 Ketorolac 0 .STK-MED ONE 10/24 184 DC Tromethamine .ROUTE Sodium Chloride 10 ML PRN PRN 10/24 171 DCD IV 10/25 1701 Orders Procedure Date/time Status DIET-NOTHING BY MOUTH 10/25 B Active CHLAMYDIA/GC 10/[address] ABD/PELVIS REQ 10/24 170 Complete IV SALINE LOCK 10/24 170 Active CBC WITH AUTO DIFF 10/24 170 Complete CHEM 12 PROFILE 10/24 170 Complete URINALYSIS/COMPLETE 10/24 164 Complete URINE 10/24 164 Complete CULTURE, URINE 10/[address] ABD & PELVIS W/O CONTRAST 10/24 UNK Active Progress - 6:30 PM: Patient notified of findings including Trichomonas and need for treatment of her sexual partners. Gallstones. She states that she has been having RIGHT upper quadrant pain off and on with eating and saw her primary care provider on Sunday who is trying to arrange a gallbladder ultrasound. Advised that she can inform her physician that she has gallstones by CAT scan and will need surgical referral. Lesions on RIGHT kidney and LEFT ovary that need follow- up ultrasound. I will also treat for UTI. Departure Departure Disposition DC Home or Self Care(routine) Clinical Impression Primary Impression: Left flank pain Secondary Impressions: Cholelithiasis Qualifiers: Cholelithiasis location: gallbladder Cholecystitis presence: without cholecystitis Biliary obstruction: without biliary obstruction Qualified Code: K80.20 - Calculus of gallbladder without cholecystitis without obstruction Trichomonas vaginalis (TV) infection Condition STABLE Referrals [facility] (Family) Patient Instructions DI for Flank Pain, DI for Gallstones, DI for Trichomoniasis Additional Instructions Have your sexual partners treated for Trichomonas. See your primary care physician for follow-up. You will need follow-up on your urine culture result and tests for sexually transmitted diseases. You had a spot on your RIGHT kidney and LEFT ovary and radiologist recommends ultrasound for further evaluation. You have gallstones on your CAT scan. Follow-up with your primary care physician for surgical referral. Prescriptions Current Visit Scripts Metronidazole (Flagyl) 500 MG PO TID #30 TAB Ciprofloxacin HCl (Cipro 500MG TAB) 500 MG PO BID #20 TAB Ibuprofen (Ibuprofen 800MG) 800 MG PO Q8HP PRN pain #15 TAB ED Critical Care Critical Care No at 1930
[2017-10-24 17:15] LABS: URINE BILIRUBIN - DIPSTICK NEGATIVE (NEG); URINE BLOOD NEGATIVE (NEG)
[2017-10-24 17:26] LABS: LYMPH # 2.2 K/mm3 (0.7-4.5)
[2017-10-24 18:04] LABS: URINE SQUAMOUS CELLS TNTC #/hpf (0-5)
[2017-10-24] MEDS ORDERED: CIPRO 500MG TA500 MG PO (18:35)
[2017-10-24] MEDS ORDERED: FLAGYL500 M1 PO (18:35)
[2017-10-24] MEDS ORDERED: IBUPROFEN800 MG PO (18:35)
[2017-10-24 18:48] VITALS: BP 128/82
--- NOTE | 2017-10-25 05:23 | RADIOLOGY REPORT PS360 ---
CT ABD PELVIS W/O CONTRAST CLINICAL INDICATION: Left flank pain FLANK PAIN ORDERING PHYSICIAN: Hermelindo Ham MD PATIENT AGE: 41 years COMPARISON: None TECHNIQUE: Axial images obtained with sagittal and coronal reformats. PROCEDURE: Oral Contrast: None IV Contrast: None . FINDINGS: Lower thorax: No acute finding ABDOMEN: Liver: No masses or biliary dilatation. Gallbladder: The gallbladder is contracted around several stones the largest at 1.7 cm. No obvious pericholecystic fluid or ductal dilatation Pancreas: No masses or peripancreatic fluid collections. Spleen: Unremarkable. Adrenals: Unremarkable Kidneys/ureters: 2.6 cm hypodensity superior pole right kidney probably related to a cyst and may be confirmed with ultrasound. No obstructing renal or ureteral calculi. Stomach bowel: Nondistended. No obvious mass or thickening. Appendix: Normal size appendix with no evidence of periappendiceal inflammation. The appendix is retrocecal PELVIS: Reproductive: 2.8 cm isodensity along the posterior aspect of the left ovary suggesting a cyst which could be confirmed with ultrasound Bladder: Nondistended. No obvious stones or masses. ABDOMEN & PELVIS: Peritoneum: Minimal free fluid in the cul-de-sac Lymph nodes: No enlarged lymph nodes apparent. Vasculature: No evidence of abdominal aortic aneurysm. No retroperitoneal hemorrhage evident. Bones: No acute fracture IMPRESSION: 1. Cholelithiasis. 2. Probable right renal cyst at 2.6 cm which may be confirmed with ultrasound 3. Possible left ovarian cyst at 2.8 cm which amount of the confirmed with ultrasound if clinically warranted 4. No evidence of obstructing ureteral calculus or appendicitis
[2017-10-27 03:36] LABS: Neisseria gonorrhoeae, NAA Negative (Negative)
== END 2017-10-24 18:48 | disposition home or self-care (01) ==
LOC: ER 16:29
PROVIDERS: Emergency Medicine
DX: A59.9 Trichomoniasis, unspecified (principal); K80.20 Calculus of gallbladder without cholecystitis without obstruction; Z87.440 Personal history of urinary (tract) infections

== ENCOUNTER → 2017-10-31 | Outpatient (CLI) | payer MEDICAID ==
[~2017-10-31] MED LIST changes: +FLAGYL500 M1 PO
--- NOTE | 2017-10-31 10:35 | RADIOLOGY REPORT PS360 ---
US RUQ-(ABD LTD)1ORGAN/QUAD/FU Ordering Physician: ОЛЬГА LORENZO Patient Age: 41 years: Female HISTORY: RUQ PAIN TECHNIQUE: Ultrasound right upper quadrant COMPARISON :CT abdomen October 24, 2017 FINDINGS Pancreas unremarkable Liver.: No lesions. No intravaguely ductal dilatation. Portal vein normal caliber 1 cm diameter with. Normal flow Gallbladder. Multiple gallstones. Largest gallstone~ 17 mm with multiple other stones shadowing. No gallbladder wall thickening. No inflammatory changes. Common duct normal diameter. 3 mm at hilum of liver Right kidney. 3.2 x 2.3 cm cyst upper pole right kidney. Fluid filled cyst with only some mild irregularity at the inferior wall right kidney otherwise unremarkable normal size IMPRESSION: Cholelithiasis. Multiple shadowing gallstones. No gallbladder wall thickening. Normal common duct
== END ==
LOC: RAD 08:18
DX: R10.11 Right upper quadrant pain (principal)

== ENCOUNTER 2017-11-09 08:51 | Day surgery (SDC) | payer MEDICAID ==
[~2017-11-09] VITALS: Ht 162.6 cm; Wt 99.8 kg
--- NOTE | 2017-11-09 11:22 | Operative Note ---
Surgeon/Diagnoses Surgeon/Potato Chip Maker(s) Date of procedure: 11/09/17 Surgeon: MD Alden Robledo Potato Chip Maker(s): Letitia Odonnell Diagnoses Pre-op diagnosis: Chronic Calculous Cholecystitis Post-op diagnosis Same Procedure Procedure Procedure: Laparoscopic cholecystectomy Indications: BETH JOHNSON is a 41 year-old Female with a history of RIGHT upper quadrant pain and radiographic evidence of chronic calculus cholecystitis. Findings: Fat stranding around the infundibulum Fairly large gallstones Procedure Description: After informed consent was obtained, the patient was taken to the operating room and placed in the supine position. General anesthesia was induced and the patient's abdomen was prepped and draped in a sterile fashion. After infiltration with local anesthetic an infraumbilical incision was made. A Veress needle was placed in position. The abdomen was insufflated. A 5 mm optical trocar was placed in position. Under direct visualization, 2 additional 5 mm trocars were placed in the RIGHT upper quadrant. A 12 mm trocar was placed in the subxiphoid position. The gallbladder was elevated up and over the liver margin. The tissue around the cystic duct was carefully dissected. Clips were placed proximally and the duct was transected at the infundibulum utilizing harmonic richie. Harmonic richie were then utilized to remove the gallbladder from the liver margin. The gallbladder was placed in a retrieval bag and removed through the subxiphoid trocar site. The RIGHT upper quadrant was thoroughly irrigated. No active bleeding or bile leak was noted. The fascia at the subxiphoid trocar site was reapproximated utilizing the jacqui-close device. Pneumoperitoneum was released as the remaining trocars were removed. All wounds were irrigated and skin was closed with 4-0 Monocryl in a subcuticular fashion. Steri-Strips were applied and the patient's anesthetic agents were reversed. After extubation, the patient was transferred to recovery in stable condition. EBL (ml): 10 Anesthesia: GETA Complications: No immediate Specimens: Gallbladder and contents Disposition Disposition: Stable to recovery from where she will be discharged home. Follow up in 1-2 weeks. at 1121
--- NOTE | 2017-11-09 11:38 | Anesthesia Record ---
Anesthesia Record Part I Total IV fluids: 1600 EBL (ml): 10 Urine Output: 0 B/P: 132/82 % SaO2: 98 Pulse: 72 Resps: 16 Temp: 97.6 Patient is: Drowsy, Stable Stable to PACU at: 1135 at 1137
--- NOTE | 2017-11-09 11:38 | Anesthesia Record ---
Anesthesia Record Part II Discharge time: 1205 Destination: Same day surgery PACU nurse assessment review? Yes Patient is: Stable Anesthesia complications? No at 1134
[2017-11-09 14:00] VITALS: BP 122/76
== END 2017-11-09 13:00 | disposition home or self-care (01) ==
LOC: SDC 08:51
PROVIDERS: Surgery
PROC: 0FT44ZZ Resection of Gallbladder, Percutaneous Endoscopic Approach (ICD-10-PCS; principal; 2017-11-09 10:30)
DX: K80.10 Calculus of gallbladder with chronic cholecystitis without obstruction (principal)
CPT/HCPCS: J0131; J2405; J2710